=== PATIENT | female | born 1955 | race Caucasian/White ===

== ENCOUNTER → 2016-03-17 | Outpatient (REF) | payer OTHER ==
[2016-03-17 12:00] LABS: ALBUMIN 3.7 GM/DL (3.2-5.2); ALBUMIN/GLOBULIN RATIO 1.19 (1.00-1.93); ALKALINE PHOSPHATASE 106 U/L (45-117); ALT/SGPT 24 U/L (12-78); ANION GAP 8 MEQ/L (8-16); AST/SGOT 11 U/L (15-37); BILIRUBIN,TOTAL 0.4 MG/DL (0.2-1.0); BLOOD UREA NITROGEN 20 MG/DL (7-18); CALCIUM LEVEL 9.4 MG/DL (8.8-10.2); CARBON DIOXIDE LEVEL 31 MEQ/L (21-32); CHLORIDE LEVEL 102 MEQ/L (98-107); CREATININE FOR GFR 0.82 MG/DL (0.55-1.02); FREE T4 1.12 NG/DL (0.76-1.46); GLOMERULAR FILTRATION RATE > 60.0 (>45); GLUCOSE, FASTING 85 MG/DL (80-110); POTASSIUM SERUM 4.2 MEQ/L (3.5-5.1); SODIUM LEVEL 141 MEQ/L (136-145); TOTAL PROTEIN 6.8 GM/DL (6.4-8.2)
== END ==
LOC: M SFHCPLAZ 08:13
PROVIDERS: ATTEND Nurse Practitioner Family
DX: R60.0 Localized edema (principal); E03.9 Hypothyroidism, unspecified; K21.9 Gastro-esophageal reflux disease without esophagitis; E55.9 Vitamin D deficiency, unspecified

== ENCOUNTER → 2016-07-12 | Outpatient (CLI) | payer OTHER ==
--- NOTE | 2016-07-12 11:08 | REP ---
LUMBAR SPINE, FIVE VIEWS: HISTORY: Back pain. There is no acute fracture or subluxation. The L3-4 and L4-5 intervertebral discs are decreased in height consistent with disc degeneration. The facet joints are normal in appearance. IMPRESSION: Degenerative change as described above. Signed by Ramon Bassett MD 07/12/2016 11:47 A
--- NOTE | 2016-07-12 22:53 | REP ---
Clinical: Acute right knee pain. Technique: AP, lateral, bilateral oblique, and sunrise views of the right knee. Findings: Mild arthritic changes include subchondral sclerosis to the tibial plateau and posterior patella with associated tibiofemoral and patellofemoral joint space narrowing. No acute fracture dislocation. No effusion. Impression: Mild arthritic degenerative changes. Signed by Bay Valero MD 07/12/2016 10:44 P
== END ==
LOC: M SMT 08:32
PROVIDERS: ATTEND Nurse Practitioner Family
DX: M54.41 Lumbago with sciatica, right side (principal); M25.561 Pain in right knee

== ENCOUNTER → 2016-09-15 | Outpatient (REF) | payer OTHER ==
[2016-09-15 13:21] LABS: ALBUMIN 3.9 GM/DL (3.2-5.2); ALBUMIN/GLOBULIN RATIO 1.39 (1.00-1.93); ALKALINE PHOSPHATASE 97 U/L (45-117); ALT/SGPT 23 U/L (12-78); ANION GAP 10 MEQ/L (8-16); AST/SGOT 12 U/L (15-37); BILIRUBIN,TOTAL 0.4 MG/DL (0.2-1.0); BLOOD UREA NITROGEN 17 MG/DL (7-18); CALCIUM LEVEL 9.5 MG/DL (8.8-10.2); CARBON DIOXIDE LEVEL 30 MEQ/L (21-32); CHLORIDE LEVEL 102 MEQ/L (98-107); CHOLESTEROL LEVEL 226 MG/DL (<200); CREATININE FOR GFR 0.62 MG/DL (0.55-1.02); FREE T4 1.23 NG/DL (0.76-1.46); GLOMERULAR FILTRATION RATE > 60.0 (>45); GLUCOSE, FASTING 80 MG/DL (80-110); POTASSIUM SERUM 3.9 MEQ/L (3.5-5.1); SODIUM LEVEL 142 MEQ/L (136-145); TOTAL PROTEIN 6.7 GM/DL (6.4-8.2); TRIGLYCERIDES LEVEL 221 MG/DL (<150)
== END ==
LOC: M SFHCPLAZ 10:36
PROVIDERS: ATTEND Nurse Practitioner Family
DX: R60.0 Localized edema (principal); E03.9 Hypothyroidism, unspecified; E78.2 Mixed hyperlipidemia; E55.9 Vitamin D deficiency, unspecified

== ENCOUNTER → 2016-11-08 | Outpatient (CLI) | payer OTHER ==
[2016-11-08 18:26] LABS: INR 0.84
== END ==
LOC: M WUC 15:30
PROVIDERS: ATTEND Physical Medicine & Rehabilitation
DX: M51.27 Other intervertebral disc displacement, lumbosacral region (principal); M47.817 Spondylosis without myelopathy or radiculopathy, lumbosacral region

== ENCOUNTER → 2017-03-14 | Outpatient (REF) | payer OTHER ==
[2017-03-14 12:21] LABS: TOTAL 25(OH) VITAMIN D 22.4 NG/ML (30.0-100.0)
[2017-03-14 12:36] LABS: ALBUMIN 3.8 GM/DL (3.2-5.2); ALBUMIN/GLOBULIN RATIO 1.12 (1.00-1.93); ALKALINE PHOSPHATASE 107 U/L (45-117); ALT/SGPT 25 U/L (12-78); ANION GAP 5 MEQ/L (8-16); AST/SGOT 11 U/L (7-37); BILIRUBIN,TOTAL 0.4 MG/DL (0.2-1.0); BLOOD UREA NITROGEN 17 MG/DL (7-18); CALCIUM LEVEL 9.2 MG/DL (8.8-10.2); CARBON DIOXIDE LEVEL 32 MEQ/L (21-32); CHLORIDE LEVEL 104 MEQ/L (98-107); CREATININE FOR GFR 0.85 MG/DL (0.55-1.30); FREE T4 1.07 NG/DL (0.76-1.46); GLOMERULAR FILTRATION RATE > 60.0 (>45); GLUCOSE, FASTING 98 MG/DL (70-100); POTASSIUM SERUM 4.2 MEQ/L (3.5-5.1); SODIUM LEVEL 141 MEQ/L (136-145); TOTAL PROTEIN 7.2 GM/DL (6.4-8.2)
== END ==
LOC: M SFHCPLAZ 07:50
DX: R60.0 Localized edema (principal); E03.9 Hypothyroidism, unspecified; K21.9 Gastro-esophageal reflux disease without esophagitis; E55.9 Vitamin D deficiency, unspecified

== ENCOUNTER → 2017-07-13 | Outpatient (CLI) | payer OTHER | LOC: M RAD 07:34 | DX: J44.9 Chronic obstructive pulmonary disease, unspecified (principal); F17.210 Nicotine dependence, cigarettes, uncomplicated; Z12.2 Encounter for screening for malignant neoplasm of respiratory organs ==

== ENCOUNTER → 2017-09-12 | Outpatient (REF) | payer OTHER ==
[2017-09-12 11:59] LABS: TOTAL 25(OH) VITAMIN D 13.8 NG/ML (30.0-100.0)
[2017-09-12 12:02] LABS: ALBUMIN 3.7 GM/DL (3.2-5.2); ALBUMIN/GLOBULIN RATIO 1.16 (1.00-1.93); ALKALINE PHOSPHATASE 104 U/L (45-117); ALT/SGPT 23 U/L (12-78); ANION GAP 8 MEQ/L (8-16); AST/SGOT 8 U/L (7-37); BILIRUBIN,TOTAL 0.4 MG/DL (0.2-1.0); BLOOD UREA NITROGEN 18 MG/DL (7-18); CALCIUM LEVEL 9.6 MG/DL (8.8-10.2); CARBON DIOXIDE LEVEL 30 MEQ/L (21-32); CHLORIDE LEVEL 104 MEQ/L (98-107); CHOLESTEROL LEVEL 222 MG/DL (<200); CREATININE FOR GFR 0.83 MG/DL (0.55-1.30); FREE T4 1.14 NG/DL (0.76-1.46); GLOMERULAR FILTRATION RATE > 60.0 (>45); GLUCOSE, FASTING 92 MG/DL (70-100); HDL CHOLESTEROL 49 MG/DL (>40); LDL CHOLESTEROL 120.2 MG/DL (<100); NON-HDL-C 173 MG/DL; POTASSIUM SERUM 4.3 MEQ/L (3.5-5.1); SODIUM LEVEL 142 MEQ/L (136-145); TOTAL PROTEIN 6.9 GM/DL (6.4-8.2); TRIGLYCERIDES LEVEL 264 MG/DL (<150)
== END ==
LOC: M SFHCPLAZ 08:53
DX: R60.0 Localized edema (principal); Z68.39 Body mass index [BMI] 39.0-39.9, adult; E03.9 Hypothyroidism, unspecified; E78.2 Mixed hyperlipidemia; E55.9 Vitamin D deficiency, unspecified

== ENCOUNTER → 2017-12-12 | Outpatient (REF) | payer OTHER ==
[2017-12-12 18:36] LABS: BASO % 0.3 % (0.0-1.0); EOS # 0.1 10^3/uL (0.0-0.50); EOS % 1.2 % (0.0-3.0); HEMOGLOBIN 14.4 g/dl (12.0-15.5); IMMATURE GRANULOCYTE % 1.3 % (0-3.0); LYMPH # 1.5 10^3/uL (1.5-4.5); MEAN CORPUSCULAR HEMOGLOBIN 31.1 pg (27.0-33.0); MEAN CORPUSCULAR HGB CONC 34.3 g/dl (32.0-36.5); MEAN CORPUSCULAR VOLUME 90.7 fl (80.0-96.0); MONO % 8.3 % (0.0-5.0); NEUTROPHILS # 8.9 10^3/uL (1.8-7.7); NEUTROPHILS % 75.9 % (36.0-66.0); PLATELET COUNT, AUTOMATED 255 10^3/uL (150-450); RED BLOOD COUNT 4.63 10^6/uL (4.00-5.40); RED CELL DISTRIBUTION WIDTH 15.3 % (11.5-14.5); WHITE BLOOD COUNT 11.8 10^3/uL (4.0-10.0)
[2017-12-12 18:57] LABS: ALBUMIN 3.8 GM/DL (3.2-5.2); ALBUMIN/GLOBULIN RATIO 1.09 (1.00-1.93); ALKALINE PHOSPHATASE 112 U/L (45-117); ALT/SGPT 18 U/L (12-78); ANION GAP 6 MEQ/L (8-16); AST/SGOT 6 U/L (7-37); BILIRUBIN,TOTAL 0.3 MG/DL (0.2-1.0); BLOOD UREA NITROGEN 14 MG/DL (7-18); CALCIUM LEVEL 9.4 MG/DL (8.8-10.2); CARBON DIOXIDE LEVEL 33 MEQ/L (21-32); CHLORIDE LEVEL 100 MEQ/L (98-107); CREATININE FOR GFR 0.74 MG/DL (0.55-1.30); GLOMERULAR FILTRATION RATE > 60.0 (>45); GLUCOSE, FASTING 90 MG/DL (70-100); LIPASE 73 U/L (73-393); POTASSIUM SERUM 3.8 MEQ/L (3.5-5.1); SODIUM LEVEL 139 MEQ/L (136-145); TOTAL PROTEIN 7.3 GM/DL (6.4-8.2)
[2017-12-12 19:02] LABS: APPEARANCE, URINE HAZY (CLEAR); BACTERIA, URINE AUTO NEGATIVE (NEGATIVE); BILIRUBIN, URINE AUTO NEGATIVE (NEGATIVE); BLOOD, URINE BLOOD NEGATIVE (NEGATIVE); CALCIUM OXALATE CRYSTALS LARGE; COLOR, URINE YELLOW (YELLOW); GLUCOSE, URINE (UA) AUTO NEGATIVE (NEGATIVE); KETONE, URINE AUTO NEGATIVE (NEGATIVE); LEUKOCYTE ESTERASE, URINE AUTO NEGATIVE (NEGATIVE); MUCUS, URINE SMALL (NEGATIVE); NITRITE, URINE AUTO NEGATIVE (NEGATIVE); PROTEIN, URINE AUTO NEGATIVE (NEGATIVE); RBC, URINE AUTO 1 /HPF (0-3); SPECIFIC GRAVITY URINE AUTO 1.023 (1.002-1.035); SQUAMOUS EPITHELIAL CELL UR AU 4 /HPF (0-6); UROBILINOGEN, URINE AUTO 0.2 mg/dL (0.0-2.0); WBC, URINE AUTO 2 /HPF (0-3)
== END ==
LOC: M SFHCPLAZ 15:54
DX: R10.32 Left lower quadrant pain (principal)

== ENCOUNTER → 2017-12-13 | Outpatient (CLI) | payer OTHER ==
[~2017-12-13] MED LIST: GASTROGRAFIN SOLUTION 30ML (Q9963) As Ordered; ISOVUE-370 76% 100ML VIAL (Q9967) As Ordered
== END ==
LOC: M RAD 07:14
DX: R10.32 Left lower quadrant pain (principal)
CPT/HCPCS: Q9963

== ENCOUNTER → 2018-01-02 | Outpatient (REF) | payer OTHER ==
[2018-01-02 11:44] LABS: BASO % 0.3 % (0.0-1.0); EOS # 0.1 10^3/uL (0.0-0.50); EOS % 1.7 % (0.0-3.0); HEMATOCRIT 43.6 % (36.0-47.0); HEMOGLOBIN 14.4 g/dl (12.0-15.5); IMMATURE GRANULOCYTE % 0.3 % (0-3.0); LYMPH # 1.2 10^3/uL (1.5-4.5); LYMPH % 19.6 % (24.0-44.0); MEAN CORPUSCULAR HEMOGLOBIN 30.5 pg (27.0-33.0); MEAN CORPUSCULAR VOLUME 92.4 fl (80.0-96.0); MONO # 0.5 10^3/uL (0.0-0.8); NEUTROPHILS # 4.2 10^3/uL (1.8-7.7); NEUTROPHILS % 70.1 % (36.0-66.0); PLATELET COUNT, AUTOMATED 218 10^3/uL (150-450); RED BLOOD COUNT 4.72 10^6/uL (4.00-5.40); RED CELL DISTRIBUTION WIDTH 15.4 % (11.5-14.5)
[2018-01-02 11:55] LABS: ALBUMIN 3.8 GM/DL (3.2-5.2); ALBUMIN/GLOBULIN RATIO 1.19 (1.00-1.93); ALKALINE PHOSPHATASE 96 U/L (45-117); ALT/SGPT 18 U/L (12-78); ANION GAP 6 MEQ/L (8-16); AST/SGOT 9 U/L (7-37); BILIRUBIN,TOTAL 0.4 MG/DL (0.2-1.0); BLOOD UREA NITROGEN 15 MG/DL (7-18); CALCIUM LEVEL 9.2 MG/DL (8.8-10.2); CARBON DIOXIDE LEVEL 31 MEQ/L (21-32); CHLORIDE LEVEL 104 MEQ/L (98-107); CREATININE FOR GFR 0.83 MG/DL (0.55-1.30); GLOMERULAR FILTRATION RATE > 60.0 (>45); GLUCOSE, FASTING 82 MG/DL (70-100); SODIUM LEVEL 141 MEQ/L (136-145)
== END ==
LOC: M SFHCPLAZ 09:45
DX: R16.1 Splenomegaly, not elsewhere classified (principal)
CPT/HCPCS: 80053

== ENCOUNTER → 2018-01-07 | Outpatient (CLI) | payer OTHER | LOC: M WHC 08:19 | DX: R10.11 Right upper quadrant pain (principal); K80.20 Calculus of gallbladder without cholecystitis without obstruction | CPT/HCPCS: 76705 ==

== ENCOUNTER → 2018-01-08 | Outpatient (CLI) | payer OTHER | LOC: M RAD 12:47 | DX: J98.4 Other disorders of lung (principal) | CPT/HCPCS: 71250 ==

== ENCOUNTER → 2018-01-08 | Outpatient (CLI) | payer OTHER | LOC: M WHC 13:55 | DX: Z12.31 Encounter for screening mammogram for malignant neoplasm of breast (principal) | CPT/HCPCS: 77067 ==

== ENCOUNTER → 2018-01-08 | Outpatient (REF) | payer OTHER ==
[2018-01-11 08:08] LABS: HPV HYBRID CAPTURE II Negative (Negative)
== END ==
LOC: M SFHCWAGY 14:20
DX: Z12.4 Encounter for screening for malignant neoplasm of cervix (principal)
CPT/HCPCS: G0123

== ENCOUNTER 2018-02-20 11:53 | Inpatient (IN) | payer OTHER ==
[~2018-02-20] VITALS: Ht 154.9 cm; Wt 92.2 kg
[~2018-02-20 11:53] MED LIST changes: +AMPICILLIN SOD/SULBACTAM SOD 3 GM in D5W MINI-BAG PLUS 100 ML IV ONE; +ANOR1AER PO; +DRIS50003 PO; -GASTROGRAFIN SOLUTION 30ML (Q9963) As Ordered; +HYDR25TAB PO; -ISOVUE-370 76% 100ML VIAL (Q9967) As Ordered; +LIDOCAINE 1% MDV 20ML VIAL SQ PRN; +LR 1,000 ML IV ONE; +NICO7DIS24 TOP; +PRIL20TA2 PO; +PROAAER10 INH; +QVAR80AE8 INH; +SYNT88TA2 PO; +ZOLO100T PO
[2018-02-20] MEDS ORDERED: ROCURONIUM BROMIDE 50 MG/5 ML VIAL As Ordered ONE (12:52)
[2018-02-20] MEDS ORDERED: dexameTHASONE 4 MG/ML 1ML VIAL (J1100) As Ordered ONE ×2 (12:52→15:52)
[2018-02-20] MEDS ORDERED: fentaNYL 250 MCG/5 ML INJECTION (J3010) As Ordered ONE (12:52)
[2018-02-20] MEDS ORDERED: PROPOFOL 200 MG/20 ML VIAL As Ordered ONE (12:52)
[2018-02-20] MEDS ORDERED: ONDANSETRON 4MG/2ML VIAL (J2405) As Ordered ONE (12:52)
[2018-02-20] MEDS ORDERED: LIDOCAINE 2% INJ 100 MG/5 ML SDV (FOR ANES.) As Ordered ONE (12:52)
[2018-02-20] MEDS ORDERED: MIDAZOLAM INJ 2 MG/2 ML VIAL (J2250) As Ordered ONE (12:53)
[2018-02-20] MEDS ORDERED: KETOROLAC 60 MG/2 ML VIAL (J1885) As Ordered ONE (12:55)
[2018-02-20] MEDS ORDERED: LIDOCAINE 1% SDV INJ 30 ML VIAL As Ordered ONE (14:17)
[2018-02-20] MEDS ORDERED: BUPIVACAINE HCL 0.25% 30 ML VIAL As Ordered ONE (14:17)
[2018-02-20] MEDS ORDERED: NEOSTIGMINE 10 MG/10 ML VIAL (J2710) As Ordered ONE (14:37)
[2018-02-20] MEDS ORDERED: GLYCOPYRROLATE INJ 0.2 MG/ML 2 ML VIAL As Ordered ONE (14:37)
[2018-02-20] MEDS ORDERED: ESMOLOL INJ 100MG/10ML VIAL As Ordered ONE (15:47)
[2018-02-20] MEDS ORDERED: LEVALBUTEROL 1.25 MG/0.5 ML CONCENTRATE NEB As Ordered ONE (16:15)
[2018-02-20] MEDS ORDERED: fentaNYL 100 MCG/2 ML INJECTION (J3010) As Ordered ONE (16:20)
[2018-02-20] MEDS: fentaNYL 100 MCG/2 ML INJECTION (J3010) IV PRN ×2 (16:23→16:30)
[2018-02-20] MEDS ORDERED: LEVALBUTEROL 1.25 MG/0.5 ML CONCENTRATE NEB INH ONE (16:30)
[2018-02-20] MEDS ORDERED: PERCOCET 5MG/325MG TAB PO PRN ×3 (16:30→17:45)
[2018-02-20] MEDS ORDERED: KETOROLAC 30 MG/ML VIAL (J1885) IV PRN ×2 (16:30→17:45)
[2018-02-20] MEDS ORDERED: METOCLOPRAMIDE INJ 10MG/2ML VIAL (J2765) IV PRN (16:30)
[2018-02-20] MEDS ORDERED: LR 1,000 ML IV SCH ×2 (16:30→17:38)
[2018-02-20] MEDS ORDERED: MEPERIDINE INJ 25 MG/ML VIAL (J2175) IV PRN (16:30)
[2018-02-20] MEDS ORDERED: ONDANSETRON 4MG/2ML VIAL (J2405) IV PRN ×3 (16:30→17:45)
--- NOTE | 2018-02-20 17:38 | ROOPDOC ---
[facility] Report Of Operation Report of Operation DATE OF PROCEDURE: 02/20/18 PREPROCEDURE DIAGNOSES: Cholelithiasis, Biliary Colic. Splenomegaly POSTPROCEDURE DIAGNOSES: Cholelithiasis, Chronic Cholecystitis, Splenomegaly PROCEDURE: Laparoscopic Cholecystectomy, Core Biopsy of lower pole of spleen. SURGEON: Sky Ayala MD ENTERPRISE ACCOUNT EXECUTIVE: Ankush Muhammad MD ANESTHESIA: General Anesthesia. ESTIMATED BLOOD LOSS: Approximately 40 mL. COMPLICATIONS: none. REMARKS: 62 F with intermittent epigastric and right upper quadrant discomfort related to presence of gallstones. She also had an incidental finding of splenomegaly and is being seen by Dr. Lizarraga. Dr. Lizarraga asked for possible biopsy of the spleen for workup of her splenomegaly. PROCEDURE NOTE: Patient took awhile to wake but successfully extubated but with her COPD, had some air trapping, mild episodes of hypoxia (88) with restricted breathign secondary to pain; thus she was admitted for further observation DESCRIPTION OF PROCEDURE: SKY AYALA MD Feb 20, 2018 17:38
[2018-02-20] MEDS ORDERED: MORPHINE 4 MG/ML 1ML VIAL/SYRINGE (J2270) IV PRN (17:45)
[2018-02-20 18:10] VITALS: BP 122/60
[2018-02-20 20:00] VITALS: BP 149/77
[2018-02-20] MEDS: NORCO, ANEXSIA 5/325MG TABLET (HYDROcodone/ACETAMINOPHEN) PO PRN (23:11)
[2018-02-21] VITALS: BP 135/76
[2018-02-21 03:58] VITALS: BP 123/70
[2018-02-21] MEDS: LEVOTHYROXINE 88MCG TABLET (0.088 MG) PO SCH (05:06)
[2018-02-21] MEDS: ACETAMINOPHEN TAB 650MG DOSE (2X325MG) PO PRN ×2 (05:11→11:47)
[2018-02-21 06:21] LABS: BASO % 0.1 % (0.0-1.0); HEMATOCRIT 38.7 % (36.0-47.0); LYMPH # 0.5 10^3/uL (1.5-4.5); LYMPH % 2.6 % (24.0-44.0); MEAN CORPUSCULAR HEMOGLOBIN 30.6 pg (27.0-33.0); MEAN CORPUSCULAR HGB CONC 33.6 g/dl (32.0-36.5); MEAN CORPUSCULAR VOLUME 91.1 fl (80.0-96.0); MONO # 0.9 10^3/uL (0.0-0.8); MONO % 5.2 % (0.0-5.0); NEUTROPHILS # 16.7 10^3/uL (1.8-7.7); NEUTROPHILS % 91.7 % (36.0-66.0); PLATELET COUNT, AUTOMATED 194 10^3/uL (150-450); RED BLOOD COUNT 4.25 10^6/uL (4.00-5.40); WHITE BLOOD COUNT 18.2 10^3/uL (4.0-10.0)
[2018-02-21 06:46] LABS: ALBUMIN 3.2 GM/DL (3.2-5.2); ALT/SGPT 146 U/L (12-78); BILIRUBIN,TOTAL 0.6 MG/DL (0.2-1.0); BLOOD UREA NITROGEN 18 MG/DL (7-18); CARBON DIOXIDE LEVEL 27 MEQ/L (21-32); CHLORIDE LEVEL 104 MEQ/L (98-107); GLOMERULAR FILTRATION RATE > 60.0 (>45); GLUCOSE, FASTING 119 MG/DL (70-100); POTASSIUM SERUM 4.2 MEQ/L (3.5-5.1); SODIUM LEVEL 137 MEQ/L (136-145); TOTAL PROTEIN 6.4 GM/DL (6.4-8.2)
[2018-02-21 08:00] VITALS: BP 128/61
--- NOTE | 2018-02-21 08:32 | IPNPDOC ---
Subjective General Date/Time Seen The patient was seen on 02/21/18 at 08:31. Subject Chief Complaint/History Patient appears more comfortable. She is complaining of pain over the left upper quadrant, left side of the chest and shoulder. She denies any nausea or vomiting. She feels bloated. She is still on the Venturi mask 94%. Current Medications Current Medications Current Medications Acetaminophen (Tylenol Tab) 650 mg Q4HP PRN PO MILD PAIN or TEMP > 101 Last administered on 02/21/18at 05:11; Start 02/20/18 at 17:45 Acetaminophen/ Hydrocodone Bitart ([place], Anexsia 5/325) 1 tab Q4HP PRN PO PAIN; Start 02/20/18 at 16:30 Acetaminophen/ Hydrocodone Bitart ([place], Anexsia 5/325) 2 tab Q4HP PRN PO SEVERE PAIN (PS 8-10) Last administered on 02/20/18at 23:11; Start 02/20/18 at 16:30 Albuterol Sulfate (Proventil, Ventolin Hfa) 2 puff Q2HP PRN INH wheezing; sob; Start 02/20/18 at 17:45 Fentanyl Citrate (Sublimaze) 25 mcg Q5MP PRN IV MODERATE PAIN (PS 4-7) Last administered on 02/20/18at 16:30; Start 02/20/18 at 16:30; Stop 02/20/18 at 17:30; Status DC Hydrochlorothiazide (Hydrodiuril) 25 mg DAILY PO ; Start 02/21/18 at 09:00 Ketorolac Tromethamine (ToRADol) 15 mg Q6H PRN IV PAIN; Start 02/20/18 at 16:30; Stop 02/20/18 at 17:50; Status DC Ketorolac Tromethamine (ToRADol) 15 mg Q6HP PRN IV MILD/MODERATE PAIN (PS 1-7) Last administered on 02/20/18at 17:45; Start 02/20/18 at 17:45; Stop 02/25/18 at 17:44 Lactated Ringer's 1,000 ml @ 100 mls/hr Q10H IV ; Start 02/20/18 at 16:30; Stop 02/20/18 at 17:30; Status DC Lactated Ringer's 1,000 ml @ 100 mls/hr Q10H IV ; Start 02/20/18 at 17:38; Stop 02/20/18 at 23:23; Status DC Levothyroxine Sodium (Synthroid) 88 mcg DAILY@0600 PO Last administered on 02/21/18at 05:06; Start 02/21/18 at 06:00 Lidocaine HCl (LIDOCAINE 1% MDV 20ml) 0.1 ml ONCE PRN SQ DISCOMFORT BEFORE IV START; Start 02/20/18 at 06:00; Stop 02/20/18 at 16:16; Status DC Meperidine HCl (Demerol) 12.5 mg Q5MP PRN IV SHIVERING; Start 02/20/18 at 16:30; Stop 02/20/18 at 17:30; Status DC Metoclopramide HCl (REGLAN INJection) 10 mg Q6HP PRN IV NAUSEA OR VOMITING; Start 02/20/18 at 16:30; Stop 02/20/18 at 17:30; Status DC Morphine Sulfate (Morphine Sulfate Inj) 4 mg Q2HP PRN IV SEVERE PAIN (PS 8-10); Start 02/20/18 at 17:45 Nicotine (Nicoderm Cq 7 Mg) 1 patch DAILY TOP ; Start 02/21/18 at 09:00 Omeprazole (PriLOSEC) 20 mg DAILY PO ; Start 02/21/18 at 09:00 Ondansetron HCl (ZOFRAN INJection) 4 mg Q4HP PRN IV NAUSEA OR VOMITING; Start 02/20/18 at 16:30; Stop 02/20/18 at 17:30; Status DC Ondansetron HCl (ZOFRAN INJection) 4 mg Q6HP PRN IV NAUSEA; Start 02/20/18 at 16:30; Stop 02/20/18 at 17:50; Status DC Ondansetron HCl (ZOFRAN INJection) 4 mg Q6HP PRN IV NAUSEA OR VOMITING; Start 02/20/18 at 17:45 Oxycodone/ Acetaminophen (Percocet 5mg/ 325mg Tablet) 1 tab ASDIRECTED PRN PO MILD/MODERATE PAIN (PS 1-7) Last administered on 02/20/18at 16:55; Start 02/20/18 at 16:30; Stop 02/20/18 at 17:30; Status DC Oxycodone/ Acetaminophen (Percocet 5mg/ 325mg Tablet) 1 tab Q4HP PRN PO MODERATE PAIN (PS 5-7); Start 02/20/18 at 17:45 Oxycodone/ Acetaminophen (Percocet 5mg/ 325mg Tablet) 2 tab Q6HP PRN PO SEVERE PAIN (PS 8-10); Start 02/20/18 at 17:45 Sertraline HCl (Zoloft) 100 mg DAILY PO ; Start 02/21/18 at 09:00 Allergies Coded Allergies: Iodine (Verified Allergy, Intermediate, itching and rash, 01/30/18) No Known Drug Allergy (Unverified Allergy, Unknown, 05/15/12) Objective Physical Examination Examination GENERAL APPEARANCE: Comfortable. SKIN: Warm and moist. HEENT: Normocephalic, atraumatic. [place] palpebral conjunctiva, anicteric sclerae. Lips and mucosa appear moist. NECK: Supple, no thyromegaly. No obvious jugular venous distention. LUNGS: Clear to auscultation bilaterally. No wheezing appreciated. Slight decreased respiratory effort, splinting HEART: No chest wall abnormalities. Regular rate and rhythm with no murmurs appreciated. ABDOMEN: Abdomen is obese, soft, nondistended. Port site incisions are clean, dry and intact. Minimally tender close to the left upper quadrant incision site. EXTREMITIES: Extremities have no deformities. No edema identified. Vital Signs Vital Signs Date Time Temp Pulse Resp B/P (MAP) Pulse Ox O2 Delivery O2 Flow Rate FiO2 02/21/18 04:00 35 02/21/18 03:58 98.9 104 20 123/70 (87) 94 Venturi Mask 02/20/18 18:30 12.0 I&Os I&O- Last 24 Hours up to 6 AM 02/21/18 05:59 Intake Total 2430 ml Output Total 290 ml Balance 2140 ml Laboratory Data Labs 24H Laboratory Tests 2 02/21/18 05:50: Immature Granulocyte % (Auto) 0.4, White Blood Count 18.2H, Red Blood Count 4.25, Hemoglobin 13.0, Hematocrit 38.7, Mean Corpuscular Volume 91.1, Mean Corpuscular Hemoglobin 30.6, Mean Corpuscular Hemoglobin Concent 33.6, Red Cell Distribution Width 15.5H, Platelet Count 194, Neutrophils (%) (Auto) 91.7H, Lymphocytes (%) (Auto) 2.6L, Monocytes (%) (Auto) 5.2H, Eosinophils (%) (Auto) 0.0, Basophils (%) (Auto) 0.1, Neutrophils # (Auto) 16.7H, Lymphocytes # (Auto) 0.5L, Monocytes # (Auto) 0.9H, Eosinophils # (Auto) 0.0, Basophils # (Auto) 0.0, Nucleated Red Blood Cells % (auto) 0.0, Anion Gap 6L, Glomerular Filtration Rate > 60.0, Blood Urea Nitrogen 18, Creatinine 0.80, Sodium Level 137, Potassium Level 4.2, Chloride Level 104, Carbon Dioxide Level 27, Calcium Level 9.0, Aspartate Amino Transf (AST/SGOT) 106H, Alanine Aminotransferase (ALT/SGPT) 146H, Alkaline Phosphatase 108, Total Bilirubin 0.6, Total Protein 6.4, Albumin 3.2, Albumin/Globulin Ratio 1.00 CBC/BMP Laboratory Tests 02/21/18 05:50 Red Blood Count 4.25, Mean Corpuscular Volume 91.1, Mean Corpuscular Hemoglobin 30.6, Mean Corpuscular Hemoglobin Concent 33.6, Red Cell Distribution Width 15.5 H, Neutrophils (%) (Auto) 91.7 H, Lymphocytes (%) (Auto) 2.6 L, Monocytes (%) (Auto) 5.2 H, Eosinophils (%) (Auto) 0.0, Basophils (%) (Auto) 0.1, Neutrophils # (Auto) 16.7 H, Lymphocytes # (Auto) 0.5 L, Monocytes # (Auto) 0.9 H, Eosinophils # (Auto) 0.0, Basophils # (Auto) 0.0, Calcium Level 9.0, Aspartate Amino Transf (AST/SGOT) 106 H, Alanine Aminotransferase (ALT/SGPT) 146 H, Alkaline Phosphatase 108, Total Bilirubin 0.6, Total Protein 6.4, Albumin 3.2 Impression Postop day 1 laparoscopic cholecystectomy for cholelithiasis, biliary colic attacks, core needle biopsy of spleen for splenomegaly unexplained Postoperative hypoxia COPD Patient more comfortable today though she still is on high amounts of oxygen on a Venturi mask. I'll get a chest x-ray. We will try to wean off the oxygen Labs reviewed. Leukocytosis probably from atelectasis, reactive no signs of systemic inflammatory response symptoms Incentives spirometer Plan / VTE VTE Prophylaxis Ordered?: Yes ASCENCION HINES MD Feb 21, 2018 08:32
[2018-02-21] MEDS: NICOTINE 7 MG/24 HR TRANSDERMAL TOP SCH (09:00)
--- NOTE | 2018-02-21 09:47 | REP ---
Chest x-ray: Two views. History: Shortness of breath. Comparison study: November 26, 2015. Findings: EKG monitoring electrodes overlie the chest. The lungs are symmetrically aerated and free of infiltrate. There is a faint linear band of increased density in the perihilar region on the left consistent with discoid atelectasis. Pleural angles are sharp. Heart size is normal. Pulmonary vasculature is not increased. Impression: Mild perihilar discoid atelectasis on the left. Otherwise no acute disease. Electronically Signed by Adilson Dyer MD 02/21/2018 09:38 A
[2018-02-21] MEDS: OMEPRAZOLE 20 MG CAP PO SCH (10:07)
[2018-02-21] MEDS: SERTRALINE 100 MG TAB PO SCH (10:07)
[2018-02-21] MEDS: hydroCHLOROthiazide 25 MG TAB PO SCH (10:07)
[2018-02-21 12:00] VITALS: BP 122/68
[2018-02-21] MEDS ORDERED: SLF 3 ML SYR IV PRN (12:30)
[2018-02-21] MEDS: SLF 3 ML SYR IV SCH ×2 (14:59→22:00)
[2018-02-21] MEDS: NORCO, ANEXSIA 5/325MG TABLET (HYDROcodone/ACETAMINOPHEN) PO PRN ×2 (14:59→19:32)
[2018-02-21 16:00] VITALS: BP 153/83
[2018-02-21 19:28] VITALS: BP 141/71
[2018-02-21] MEDS: ALBUTEROL 90 MCG/ACT 8GM HFA INHALER INH PRN (19:50)
[2018-02-21] MEDS ORDERED: IPRATROPIUM 0.5MG/ALBUTEROL 2.5MG INH SOL UD 3ML (DUONEB)(J7620) NEB PRN (20:45)
[2018-02-22] VITALS: BP 150/70
[2018-02-22] MEDS: NORCO, ANEXSIA 5/325MG TABLET (HYDROcodone/ACETAMINOPHEN) PO PRN ×5 (00:14→21:21)
[2018-02-22] MEDS: ALBUTEROL 90 MCG/ACT 8GM HFA INHALER INH PRN ×2 (00:16→03:03)
[2018-02-22 04:00] VITALS: BP 140/78
[2018-02-22] MEDS: LEVOTHYROXINE 88MCG TABLET (0.088 MG) PO SCH (04:10)
[2018-02-22] MEDS: SLF 3 ML SYR IV SCH ×3 (04:11→21:03)
[2018-02-22 08:02] VITALS: BP 135/80
[2018-02-22] MEDS: OMEPRAZOLE 20 MG CAP PO SCH (08:12)
[2018-02-22] MEDS: SERTRALINE 100 MG TAB PO SCH (08:12)
[2018-02-22] MEDS: hydroCHLOROthiazide 25 MG TAB PO SCH (08:13)
[2018-02-22 09:40] LABS: HEMATOCRIT 37.9 % (36.0-47.0); HEMOGLOBIN 12.9 g/dl (12.0-15.5); MEAN CORPUSCULAR HEMOGLOBIN 31.5 pg (27.0-33.0); MEAN CORPUSCULAR VOLUME 92.7 fl (80.0-96.0); PLATELET COUNT, AUTOMATED 181 10^3/uL (150-450); RED BLOOD COUNT 4.09 10^6/uL (4.00-5.40); WHITE BLOOD COUNT 14.6 10^3/uL (4.0-10.0)
[2018-02-22] MEDS ORDERED: FUROSEMIDE 40 MG/4 ML VIAL (J1940) IV ONE (10:00)
[2018-02-22 10:11] LABS: ALBUMIN 3.1 GM/DL (3.2-5.2); ALT/SGPT 301 U/L (12-78); BILIRUBIN,TOTAL 2.7 MG/DL (0.2-1.0); BLOOD UREA NITROGEN 12 MG/DL (7-18); CALCIUM LEVEL 9.2 MG/DL (8.8-10.2); CARBON DIOXIDE LEVEL 30 MEQ/L (21-32); CHLORIDE LEVEL 96 MEQ/L (98-107); CREATININE FOR GFR 0.74 MG/DL (0.55-1.30); GLOMERULAR FILTRATION RATE > 60.0 (>45); GLUCOSE, FASTING 127 MG/DL (70-100); POTASSIUM SERUM 3.4 MEQ/L (3.5-5.1); SODIUM LEVEL 135 MEQ/L (136-145); TOTAL PROTEIN 7.2 GM/DL (6.4-8.2)
[2018-02-22] MEDS ORDERED: POTASSIUM CHLORIDE 10 MEQ SR TABLET PO ONE (11:00)
[2018-02-22] MEDS ORDERED: LEVALBUTEROL 1.25 MG/0.5 ML CONCENTRATE NEB INH PRN (11:00)
[2018-02-22] MEDS ORDERED: methylPREDNISolone INJ 125 MG/2 ML VIAL (J2930) IV ONE (11:15)
[2018-02-22] MEDS: LEVALBUTEROL 1.25 MG/0.5 ML CONCENTRATE NEB INH SCH ×4 (11:41→22:45)
[2018-02-22] MEDS ORDERED: ENOXAPARIN 40 MG/0.4 ML SYRINGE (J1650) SC ONE (11:45)
[2018-02-22 12:00] VITALS: BP 154/72
--- NOTE | 2018-02-22 12:15 | IPN ---
DATE OF SERVICE: 02/22/2018 PRIMARY CARE PHYSICIAN: Ev Gaytan, Faizan Vaughan MD SUBJECTIVE: Patient is a 63-year-old female past medical history significant for active smoking, chronic obstructive pulmonary disease (COPD), follows with Dr. Ramírez, splenomegaly follows with Dr. Lizarraga, status post biopsy 02/21/[address] Ayala, presented for elective laparoscopic cholecystectomy, and admitted by surgical services on 02/20/2018, hypothyroidism, hyperlipidemia, depression, dysthymic syndrome, chronic lower extremity edema, gastroesophageal reflux disease (GERD) without esophagitis, degenerative disc disease, vitamin D deficiency, osteoarthritis (OA) of multiple sites, diverticulitis with allergies to iodine. The patient developed postop fever with T-max of 101.4 on 02/22/2018 at midnight, increasing shortness of breath and tachycardia, with increase in white count to 14,000. The hospitalist service was contacted by surgery regarding the patient's shortness of breath for further evaluation. The patient has been transferred to the hospitalist service for further management with general surgery, Dr. Ayala as a talent development consultant. At the bedside, the patient still complains of significant wheezing, shortness of breath, palpitations. No lightheadedness, chest pain, pressure or tightness. Denies dizziness or lightheadedness. Denies any lower extremity tenderness, redness. Denies any chills. Denies any productive cough, dysuria, urgency or frequency. The patient is refusing nicotine patch as this has not work for her in the past . VITAL SIGNS: Temperature 96, T-max 101.4 at midnight on 02/22/2018. Pulse of 104 to 114, sinus tachycardic, respiratory rate of 22, blood pressure 135/80, pulse oximetry 92% on 2 liters nasal cannula. Generally, patient is in mild respiratory distress. No use of respiratory accessory muscles. Speech if fluent. No conversational dyspnea. Face is symmetric. No cyanosis. Moist mucous membranes. No jugular venous distention (JVD). Thick neck. Lungs diminished bilateral audible wheezing, decreased air entry. Increased AP diameter with prolonged expiration. Heart S1, S2. Sinus tachycardia. Abdomen is obese, status post lap cholecystectomy with multiple clean incisions. No drainage and no purulence. Nontender, nondistended. Obese abdomen. Extremities chronic lower extremity 2 + edema. LABORATORY DATA: White count 14.6, hemoglobin 12.9, hematocrit 37.9, platelet count 181, sodium 135, potassium 3.4, chloride 96, bicarb 30, BUN 12, creatinine 0.74, glucose 127, calcium 9.2, total bilirubin 2.7, AST 169, ALT 301, alkaline phosphatase 218, total protein 7.2, albumin of 3.1. Microbiology: 12/12/2017 urine culture no growth of clinical significance. IMAGING STUDIES: CT chest is pending. V/Q scan is pending. 02/21/2018 chest x-ray shows mild perihilar discoid atelectasis on the left, otherwise no acute distress. ASSESSMENT/PLAN: This is a 63-year-old female with a history of hypothyroidism, osteoarthritis (OA) multiple sites, chronic lung disease with COPD, follows with Dr. Ramírez, morbid obesity, recent incidental findings of splenomegaly, active smoker, refuses nicotine replacement therapy, vitamin D deficiency, depression, reflux disease without esophagitis, chronic lower extremity edema, hyperlipidemia, diverticulitis who presents for elective laparoscopic cholecystectomy complicated by COPD exacerbation with shortness of breath and tachycardia. The patient has been changed to the hospitalist service who will be managing her acute medical issues. 1. Acute COPD exacerbation. Patient has audible wheezing at the bedside. She will be started on IV Solu-Medrol. Since she has significant tachycardia and palpitations she will be switched from albuterol to Xopenex at every 4 hours and every 1 hours as needed. Chest respiratory panel, Methicillin-resistant Staphylococcus aureus (MRSA) screen, and sputum culture. Obtain CT of the chest without contrast due to prior history of iodine allergy to rule out early pneumonia which would be hospital acquired since it has been more than 48 hours of hospital admission. No empiric antibiotics at this time as no infectious etiology has been determined. 2. Acute respiratory distress secondary to COPD exacerbation with oxygen requirement, currently on 2 liters nasal cannula. Patient will be evaluated for pulmonary embolism in light of the tachycardia, shortness of breath and recent surgery. Due to history of iodine allergy CT chest will be obtained without contrast, but will rule out PE with V/Q scan and will scan lower extremities for DVT. 3. Status post laparoscopic cholecystectomy. General surgery will remain on consult for postop management. As needed [place] for pain. Monitor for respiratory acidosis and worsening respiratory distress. 4. Hypertension on hydrochlorothiazide. 5. Hypothyroidism no Synthroid. Check TSH level. 6. Active tobacco abuse not on nicotine patch. Refused tobacco cessation counseling. 7. Reflux disease without esophagitis. On chronic Prilosec. 8. History of depression on Zoloft. 9. Morbid obesity. BMI of 38.4, complicating acute care with possible obesity hypoventilation syndrome. Will monitor for respiratory acidosis and worsening mentation.
--- NOTE | 2018-02-22 12:42 | REP ---
CT CHEST WITHOUT CONTRAST: HISTORY: Postoperative fever, shortness of breath, tachycardia. Rule out pneumonia. The patient is 1 day post laparoscopic cholecystectomy and core biopsy of the spleen. Comparison chest CT study January 08, 2018. CT FINDINGS: Digital preliminary portal developer radiograph is unremarkable. There are clips in the gallbladder fossa. Axial CT images demonstrate mild linear discoid atelectasis in the left lower lobe and in the lingula. These are new findings compared to the prior study. There is also minimal linear plate-like atelectasis adjacent to the diaphragm in the right lower lobe. No infiltrate is appreciated. There is no evidence of pneumothorax or hydrothorax. There is another tiny area of subsegmental atelectatic change in the anterior aspect of the left upper lobe adjacent to the mediastinum. No pleural or pericardial effusion is seen. No adrenal lesion is observed. There is a mottled density lateral to the anterior edge of the spleen measuring 3.2 x 1.5 x 3.1 cm. The adjacent perisplenic fat is edematous. There are air bubbles within this mottled density. There is a small quantity of fluid posterior to the spleen in the subphrenic region. There are clips in the gallbladder fossa. IMPRESSION: Small collection of air bubbles and inflamed fat adjacent to the anterior edge of the spleen with some perisplenic fluid. 1-day post splenic biopsy. Bibasilar linear plate-like atelectasis. No acute infiltrate seen. Electronically Signed by Adilson Dyer MD 02/22/2018 03:13 P
--- NOTE | 2018-02-22 12:57 | IPNPDOC ---
Subjective General Date/Time Seen The patient was seen on 02/22/18 at 12:54. Subject Chief Complaint/History Patient is postoperative day 3 after laparoscopic cholecystectomy. She remains in the hospital for persistent but improving hypoxia patient remains in 2 L of nasal cannula and patient still feels mildly short of breath with limited activity. Current Medications Current Medications Current Medications Acetaminophen (Tylenol Tab) 650 mg Q4HP PRN PO MILD PAIN or TEMP > 101 Last administered on 02/21/18at 11:47; Start 02/20/18 at 17:45 Acetaminophen/ Hydrocodone Bitart ([place], Anexsia 5/325) 1 tab Q4HP PRN PO PAIN Last administered on 02/22/18at 04:11; Start 02/20/18 at 16:30 Acetaminophen/ Hydrocodone Bitart ([place], Anexsia 5/325) 2 tab Q4HP PRN PO SEV ERE PAIN (PS 8-10) Last administered on 02/22/18at 08:14; Start 02/20/18 at 16:30 Albuterol Sulfate (Proventil, Ventolin Hfa) 2 puff Q2HP PRN INH wheezing; sob Last administered on 02/22/18at 03:03; Start 02/20/18 at 17:45; Stop 02/22/18 at 11:04; Status DC Albuterol/ Ipratropium (Duoneb (Ipr 0.5mg/Alb 2.5mg)) 3 ml Q4HP PRN NEB SOB/WHEEZING Last administered on 02/22/18at 00:16; Start 02/21/18 at 20:45; Stop 02/22/18 at 11:04; Status DC Enoxaparin Sodium (Lovenox) 40 mg DAILY SC ; Start 02/23/18 at 09:00 Fentanyl Citrate (Sublimaze) 25 mcg Q5MP PRN IV MODERATE PAIN (PS 4-7) Last administered on 02/20/18at 16:30; Start 02/20/18 at 16:30; Stop 02/20/18 at 17:30; Status DC Hydrochlorothiazide (Hydrodiuril) 25 mg DAILY PO Last administered on 02/22/18at 08:13; Start 02/21/18 at 09:00 Ketorolac Tromethamine (ToRADol) 15 mg Q6H PRN IV PAIN; Start 02/20/18 at 16:30; Stop 02/20/18 at 17:50; Status DC Ketorolac Tromethamine (ToRADol) 15 mg Q6HP PRN IV MILD/MODERATE PAIN (PS 1-7) Last administered on 02/20/18at 17:45; Start 02/20/18 at 17:45; Stop 02/25/18 at 17:44 Lactated Ringer's 1,000 ml @ 100 mls/hr Q10H IV ; Start 02/20/18 at 16:30; Stop 02/20/18 at 17:30; Status DC Lactated Ringer's 1,000 ml @ 100 mls/hr Q10H IV ; Start 02/20/18 at 17:38; Stop 02/20/18 at 23:23; Status DC Levalbuterol HCl (Xopenex Neb) 1.25 mg Q1HP PRN INH SHORTNESS OF BREATH; Start 02/22/18 at 11:00 Levalbuterol HCl (Xopenex Neb) 1.25 mg RQ4H INH ; Start 02/22/18 at 12:00 Levothyroxine Sodium (Synthroid) 88 mcg DAILY@0600 PO Last administered on 02/22/18at 04:10; Start 02/21/18 at 06:00 Lidocaine HCl (LIDOCAINE 1% MDV 20ml) 0.1 ml ONCE PRN SQ DISCOMFORT BEFORE IV START; Start 02/20/18 at 06:00; Stop 02/20/18 at 16:16; Status DC Meperidine HCl (Demerol) 12.5 mg Q5MP PRN IV SHIVERING; Start 02/20/18 at 16:30; Stop 02/20/18 at 17:30; Status DC Methylprednisolone (SOLUmedrol) 60 mg Q6H IV ; Start 02/22/18 at 18:00; Status UNV Metoclopramide HCl (REGLAN INJection) 10 mg Q6HP PRN IV NAUSEA OR VOMITING; Start 02/20/18 at 16:30; Stop 02/20/18 at 17:30; Status DC Morphine Sulfate (Morphine Sulfate Inj) 4 mg Q2HP PRN IV SEVERE PAIN (PS 8-10); Start 02/20/18 at 17:45 Nicotine (Nicoderm Cq 7 Mg) 1 patch DAILY TOP ; Start 02/21/18 at 09:00 Omeprazole (PriLOSEC) 20 mg DAILY PO Last administered on 02/22/18at 08:12; Start 02/21/18 at 09:00 Ondansetron HCl (ZOFRAN INJection) 4 mg Q4HP PRN IV NAUSEA OR VOMITING; Start 02/20/18 at 16:30; Stop 02/20/18 at 17:30; Status DC Ondansetron HCl (ZOFRAN INJection) 4 mg Q6HP PRN IV NAUSEA; Start 02/20/18 at 16:30; Stop 02/20/18 at 17:50; Status DC Ondansetron HCl (ZOFRAN INJection) 4 mg Q6HP PRN IV NAUSEA OR VOMITING; Start 02/20/18 at 17:45 Oxycodone/ Acetaminophen (Percocet 5mg/ 325mg Tablet) 1 tab ASDIRECTED PRN PO MILD/MODERATE PAIN (PS 1-7) Last administered on 02/20/18at 16:55; Start 02/20/18 at 16:30; Stop 02/20/18 at 17:30; Status DC Oxycodone/ Acetaminophen (Percocet 5mg/ 325mg Tablet) 1 tab Q4HP PRN PO MODERATE PAIN (PS 5-7); Start 02/20/18 at 17:45 Oxycodone/ Acetaminophen (Percocet 5mg/ 325mg Tablet) 2 tab Q6HP PRN PO SEVERE PAIN (PS 8-10); Start 02/20/18 at 17:45 Sertraline HCl (Zoloft) 100 mg DAILY PO Last administered on 02/22/18at 08:12; Start 02/21/18 at 09:00 Sodium Chloride ([place] Flush) 2 ml ASDIRECTED PRN IV SEE LABEL COMMENTS; Start 02/21/18 at 12:30 Sodium Chloride (Sal[place] Lock Flush) 2 ml SLF IV Last administered on 02/22/18at 04:11; Start 02/21/18 at 14:00 Allergies Coded Allergies: Iodine (Verified Allergy, Intermediate, itching and rash, 01/30/18) No Known Drug Allergy (Unverified Allergy, Unknown, 05/15/12) Objective Physical Examination Examination GENERAL APPEARANCE: Patient seen sitting up in the wheelchair on her way to the CT scan for her chest. Looks comfortable. Remains on nasal cannula. Reports shortness of breath. SKIN: [Warm and moist]. HEENT: [Normocephalic, atraumatic. [place] palpebral conjunctiva, anicteric sclerae. Lips and mucosa appear moist]. NECK: [Supple, no thyromegaly. No obvious jugular venous distention]. LUNGS: [Clear to auscultation bilaterally. No wheezing appreciated]. HEART: [No chest wall abnormalities. Regular rate and rhythm with no murmurs appreciated]. ABDOMEN: Abdomen is obese, soft, nondistended. Mild tenderness over the left upper quadrant area around the port site as well as the epigastric area. Port site dressings are clean, dry and intact. Nontender on the rest of the abdomen.. EXTREMITIES: Minimal lower extremity edema. Vital Signs Vital Signs Date Time Temp Pulse Resp B/P (MAP) Pulse Ox O2 Delivery O2 Flow Rate FiO2 02/22/18 12:00 97.4 106 19 154/72 (99) 94 Nasal Cannula 2.0 02/21/18 08:50 35 I&Os I&O- Last 24 Hours up to 6 AM 02/22/18 06:00 Intake Total 1310 ml Output Total 1550 ml Balance -240 ml Laboratory Data Labs 24H Laboratory Tests 2 02/22/18 09:21: Nucleated Red Blood Cells % (auto) 0.0, Anion Gap 9, Glomerular Filtration Rate > 60.0, Blood Urea Nitrogen 12, Creatinine 0.74, Sodium Level 135L, Potassium Level 3.4L, Chloride Level 96L, Carbon Dioxide Level 30, Calcium Level 9.2, Aspartate Amino Transf (AST/SGOT) 169H, Alanine Aminotransferase (ALT/SGPT) 301H, Alkaline Phosphatase 218H, Total Bilirubin 2.7#H, Total Protein 7.2, Albumin 3.1L, Albumin/Globulin Ratio 0.76L 02/22/18 11:15: Erythrocyte Sedimentation Rate 52H, D-Dimer, Quantitative 2256.67H, Lactic Acid Level 1.3, C-Reactive Protein, Quantitative 33.20H CBC/BMP Laboratory Tests 02/22/18 09:21 Red Blood Count 4.09, Mean Corpuscular Volume 92.7, Mean Corpuscular Hemoglobin 31.5, Mean Corpuscular Hemoglobin Concent 34.0, Red Cell Distribution Width 15.9 H, Calcium Level 9.2, Aspartate Amino Transf (AST/SGOT) 169 H, Alanine Aminotransferase (ALT/SGPT) 301 H, Alkaline Phosphatase 218 H, Total Bilirubin 2.7 #H, Total Protein 7.2, Albumin 3.1 L Microbiology Microbiology 02/22/18 Blood Culture, Received Pending Impression Cholelithiasis with biliary colic postop day 3 after laparoscopic cholecystectomy COPD with postoperative hypoxia improving Splenomegaly is post core biopsy Chronic kidney disease She still requires at least 2 L of O2 via nasal cannula and has somewhat limited inspiratory effort with some mild diffuse crackles. I'll give her a dose of Lasix IV. I'll last the medical service to come see her and help in the management of her COPD. This does not seem to be an exacerbation though most likely some postoperative atelectasis with some air trapping from her COPD. With regards to the cholecystectomy as well as splenic biopsies remains stable. Her hemoglobin and hematocrit is stable . Plan / VTE VTE Prophylaxis Ordered?: Yes ASCENCION HINES MD Feb 22, 2018 12:57
--- NOTE | 2018-02-22 13:54 | REP ---
BILATERAL LOWER EXTREMITY DOPPLER VENOUS ULTRASOUND: 02/22/2018. Clinical history: Lower extremity edema, evaluate for DVT. Comparison: None. Technique: The deep venous system of the bilateral lower extremities is evaluated with vital scale imaging, compression ultrasound, color imaging and duplex Doppler interrogation. Examination from the groin through the popliteal fossa into the proximal calf. Findings: There is full compressibility from the common femoral vein in the inguinal region through the popliteal vein on both sides. Color imaging confirms patency throughout the course of the deep venous system. There is respiratory variation and augmented flow at all levels. In the popliteal fossa on the left, there is a complex Sullivan's cyst 6.7 x 4.4 x 1.4 cm. Impression: 1. No Doppler venous ultrasound evidence of DVT in the bilateral lower extremities. 2. Complex Sullivan's cyst left popliteal fossa. Electronically Signed by Jamir Morton MD 02/22/2018 01:45 P
[2018-02-22 14:13] VITALS: BP 133/77
--- NOTE | 2018-02-22 14:23 | REP ---
VENTILATION-PERFUSION LUNG SCAN: HISTORY: Rule out pulmonary embolus. Tachycardia. Shortness of breath. Status post cholecystectomy. TECHNIQUE: 1.0 mCi of technetium 99m DTPA aerosol is utilized for the ventilation study and is followed by a 5.5 mCi dose of technetium 99m MAA given intravenously for the perfusion study. A sequence of eight planar images are acquired for each portion of the study. Today's chest CT study and yesterday's chest x-ray study are comparison exams. FINDINGS: There is some central bronchial deposition of inspired tracer bilaterally, consistent with some degree of COPD. Perfusion study shows generally more homogeneous uptake in the lung parenchyma than the ventilation study. There is a matched perfusion defect in the upper lobe region on the left and another in the upper lobe posteriorly on the right. No mismatched defect is seen. IMPRESSION: Low probability scan for pulmonary embolus. Electronically Signed by Adilson Dyer MD 02/22/2018 03:18 P
[2018-02-22] MEDS: methylPREDNISolone INJ 125 MG/2 ML VIAL (J2930) IV SCH ×2 (18:34→23:32)
[2018-02-22] MEDS: NICOTINE 7 MG/24 HR TRANSDERMAL TOP SCH (20:49)
[2018-02-22 22:00] VITALS: BP 147/86
[2018-02-23] MEDS: LEVALBUTEROL 1.25 MG/0.5 ML CONCENTRATE NEB INH SCH ×5 (04:00→22:53)
[2018-02-23] MEDS: SLF 3 ML SYR IV SCH ×3 (05:41→22:19)
[2018-02-23] MEDS: LEVOTHYROXINE 88MCG TABLET (0.088 MG) PO SCH (05:41)
[2018-02-23] MEDS: methylPREDNISolone INJ 125 MG/2 ML VIAL (J2930) IV SCH ×4 (05:41→23:15)
[2018-02-23 05:50] VITALS: BP 146/73
[2018-02-23 06:46] LABS: HEMATOCRIT 36.1 % (36.0-47.0); LYMPH # 0.4 10^3/uL (1.5-4.5); LYMPH % 3.5 % (24.0-44.0); MEAN CORPUSCULAR HEMOGLOBIN 30.5 pg (27.0-33.0); MEAN CORPUSCULAR HGB CONC 33.2 g/dl (32.0-36.5); MEAN CORPUSCULAR VOLUME 91.9 fl (80.0-96.0); MONO # 0.3 10^3/uL (0.0-0.8); MONO % 2.5 % (0.0-5.0); NEUTROPHILS % 93.5 % (36.0-66.0); PLATELET COUNT, AUTOMATED 172 10^3/uL (150-450); RED BLOOD COUNT 3.93 10^6/uL (4.00-5.40); WHITE BLOOD COUNT 10.7 10^3/uL (4.0-10.0)
[2018-02-23 07:11] LABS: ALBUMIN 2.9 GM/DL (3.2-5.2); ALT/SGPT 185 U/L (12-78); BILIRUBIN,DIRECT 0.4 MG/DL (0.0-0.2); BILIRUBIN,TOTAL 0.7 MG/DL (0.2-1.0); BLOOD UREA NITROGEN 13 MG/DL (7-18); CALCIUM LEVEL 9.1 MG/DL (8.8-10.2); CARBON DIOXIDE LEVEL 34 MEQ/L (21-32); CHLORIDE LEVEL 95 MEQ/L (98-107); CHOLESTEROL LEVEL 198 MG/DL (<200); CREATININE FOR GFR 0.53 MG/DL (0.55-1.30); GLOMERULAR FILTRATION RATE > 60.0 (>45); GLUCOSE, FASTING 134 MG/DL (70-100); HDL CHOLESTEROL 45 MG/DL (>40); LDL CHOLESTEROL 125 MG/DL (<100); NON-HDL-C 153 MG/DL; POTASSIUM SERUM 3.4 MEQ/L (3.5-5.1); SODIUM LEVEL 136 MEQ/L (136-145); THYROID STIMULATING HORMONE 0.173 uIU/ML (0.358-3.740); TOTAL PROTEIN 6.3 GM/DL (6.4-8.2); TRIGLYCERIDES LEVEL 142 MG/DL (<150)
[2018-02-23] MEDS: NORCO, ANEXSIA 5/325MG TABLET (HYDROcodone/ACETAMINOPHEN) PO PRN ×4 (07:22→23:15)
[2018-02-23] MEDS: OMEPRAZOLE 20 MG CAP PO SCH (08:13)
[2018-02-23] MEDS: hydroCHLOROthiazide 25 MG TAB PO SCH (08:13)
[2018-02-23] MEDS: SERTRALINE 100 MG TAB PO SCH (08:13)
[2018-02-23] MEDS: NICOTINE 7 MG/24 HR TRANSDERMAL TOP SCH (08:13)
[2018-02-23] MEDS: ENOXAPARIN 40 MG/0.4 ML SYRINGE (J1650) SC SCH (08:14)
--- NOTE | 2018-02-23 10:39 | IPNPDOC ---
Date Seen The patient was seen on 02/23/18. Progress Note SUBJECTIVE: Pt c/o dyspnea on exertion walking from the bed to the bathroom. She also c/o dry cough and difficulty expectorating sputum. no fever or chills overnight. OBJECTIVE: PHYSICAL EXAMINATION: VITALS: PLS SEE BELOW. Generally, patient is in mild respiratory distress. No use of respiratory accessory muscles. Speech if fluent. No conversational dyspnea. Face is symmetric. No cyanosis. Moist mucous membranes. No jugular venous distention (JVD). Thick neck. Lungs diminished faint expiratory wheezing, decreased air entry. Heart S1, S2. Sinus tachycardia. Abdomen is obese, status post lap cholecystectomy with multiple clean incisions. No drainage and no purulence. Nontender, nondistended. Obese abdomen. Extremities chronic lower extremity 2 + edema. LABORATORY DATA, IMAGING STUDIES, MICROBIOLOGY: REVIEWED, PLS SEE BELOW ASSESSMENT/PLAN: This is a 63-year-old female with a history of hypothyroidism, osteoarthritis (OA) multiple sites, chronic lung disease with COPD, follows with Dr. Ramírez, morbid obesity, recent incidental findings of splenomegaly, active smoker, refuses nicotine replacement therapy, vitamin D deficiency, depression, reflux disease without esophagitis, chronic lower extremity edema, hyperlipidemia, diverticulitis who presents for elective laparoscopic cholecystectomy complicated by COPD exacerbation with shortness of breath and tachycardia. The patient has been changed to the hospitalist service who will be managing her acute medical issues. Acute COPD exacerbation. Patient has audible wheezing at the bedside. She will be started on IV Solu-Medrol. Since she has significant tachycardia and palpitations she will be switched from albuterol to Xopenex at every 4 hours and every 1 hours as needed. respiratory panel, Methicillin-resistant Staphylococcus aureus (MRSA) screen, and sputum culture have been reviewed. Obtained CT of the chest without contrast due to prior history of iodine allergy to rule out early pneumonia which would be hospital acquired since it has been more than 48 hours of hospital admission, but was negative. No empiric antibiotics at this time as no infectious etiology has been determined. Acute respiratory distress secondary to COPD exacerbation with oxygen requirement, currently on 2 liters nasal cannula. Patient was evaluated for pulmonary embolism in light of the tachycardia, shortness of breath and recent surgery which was negative on VQ novoa. LE dopplers were negative for DVT. Status post laparoscopic cholecystectomy. General surgery will remain on consult for postop management. As needed [place] for pain. Monitor for respiratory acidosis and worsening respiratory distress. Hypertension on hydrochlorothiazide. Hypothyroidism no Synthroid. Check TSH level. Active tobacco abuse not on nicotine patch. Refused tobacco cessation counseling. Reflux disease without esophagitis. On chronic Prilosec. History of depression on Zoloft. Morbid obesity. BMI of 38.4, complicating acute care with possible obesity hypoventilation syndrome. Will monitor for respiratory acidosis and worsening mentation. DVT prophylaxis: lovenox disposition: sunday or sunday pending improvement in clinical status. VS, I&O, 24H, Fishbone Vital Signs/I&O Vital Signs Date Time Temp Pulse Resp B/P (MAP) Pulse Ox O2 Delivery O2 Flow Rate FiO2 02/23/18 08:12 19 02/23/18 08:00 2.0 02/23/18 05:50 97.1 71 146/73 (97) 91 Nasal Cannula 02/21/18 08:50 35 I&O- Last 24 Hours up to 6 AM 02/23/18 06:00 Intake Total 1310 ml Output Total 2150 ml Balance -840 ml Laboratory Data 24H LABS Laboratory Tests 2 02/22/18 11:15: Erythrocyte Sedimentation Rate 52H, D-Dimer, Quantitative 2256.67H, Lactic Acid Level 1.3, C-Reactive Protein, Quantitative 33.20H 02/23/18 06:13: Immature Granulocyte % (Auto) 0.5, White Blood Count 10.7H, Red Blood Count 3.93L, Hemoglobin 12.0, Hematocrit 36.1, Mean Corpuscular Volume 91.9, Mean Corpuscular Hemoglobin 30.5, Mean Corpuscular Hemoglobin Concent 33.2, Red Cell Distribution Width 15.0H, Platelet Count 172, Neutrophils (%) (Auto) 93.5H, Lymphocytes (%) (Auto) 3.5L, Monocytes (%) (Auto) 2.5, Eosinophils (%) (Auto) 0.0, Basophils (%) (Auto) 0.0, Neutrophils # (Auto) 10.0H, Lymphocytes # (Auto) 0.4L, Monocytes # (Auto) 0.3, Eosinophils # (Auto) 0.0, Basophils # (Auto) 0.0, Nucleated Red Blood Cells % (auto) 0.0, Anion Gap 7L, Glomerular Filtration Rate > 60.0, Calcium Level 9.1, Aspartate Amino Transf (AST/SGOT) 35, Alanine Amino transferase (ALT/SGPT) 185H, Alkaline Phosphatase 197H, Total Bilirubin 0.7#, Direct Bilirubin 0.4H, Total Protein 6.3L, Albumin 2.9L, Albumin/Globulin Ratio 0.85L, Triglycerides Level 142, Total Cholesterol 198, LDL Cholesterol 125H, Non-HDL Cholesterol (LDL + VLDL) 153, Total HDL Cholesterol 45, Cholesterol/HDL Ratio 4.400, Thyroid Stimulating Hormone (TSH) 0.173L CBC/BMP Laboratory Tests 02/23/18 06:13 Red Blood Count 3.93 L, Mean Corpuscular Volume 91.9, Mean Corpuscular Hemoglobin 30.5, Mean Corpuscular Hemoglobin Concent 33.2, Red Cell Distribution Width 15.0 H, Neutrophils (%) (Auto) 93.5 H, Lymphocytes (%) (Auto) 3.5 L, Monocytes (%) (Auto) 2.5, Eosinophils (%) (Auto) 0.0, Basophils (%) (Auto) 0.0, Neutrophils # (Auto) 10.0 H, Lymphocytes # (Auto) 0.4 L, Monocytes # (Auto) 0.3, Eosinophils # (Auto) 0.0, Basophils # (Auto) 0.0 Microbiology Microbiology 02/22/18 Blood Culture, Received Pending 02/22/18 Gram Stain - Final, Resulted 02/22/18 Sputum Culture, Resulted Pending 02/22/18 MRSA Screen, Resulted Pending 02/22/18 Respiratory Virus Panel (PCR) ([facility]) - Final, Resulted GEORGE VARMA MD Feb 23, 2018 09:31
[2018-02-23] MEDS: guaiFENesin ER 600 MG TAB PO SCH ×2 (11:44→20:49)
[2018-02-23 14:00] VITALS: BP 151/73
[2018-02-23 20:00] VITALS: BP 130/63
[2018-02-24] MEDS: LEVALBUTEROL 1.25 MG/0.5 ML CONCENTRATE NEB INH SCH ×5 (04:00→20:45)
[2018-02-24] MEDS: LEVOTHYROXINE 88MCG TABLET (0.088 MG) PO SCH (05:28)
[2018-02-24] MEDS: methylPREDNISolone INJ 125 MG/2 ML VIAL (J2930) IV SCH ×4 (05:28→23:18)
[2018-02-24] MEDS: SLF 3 ML SYR IV SCH ×3 (05:28→20:23)
[2018-02-24 06:00] VITALS: BP 130/77
[2018-02-24 06:21] LABS: BASO % 0.1 % (0.0-1.0); HEMATOCRIT 35.9 % (36.0-47.0); LYMPH # 0.5 10^3/uL (1.5-4.5); LYMPH % 4.7 % (24.0-44.0); MEAN CORPUSCULAR HEMOGLOBIN 30.5 pg (27.0-33.0); MEAN CORPUSCULAR HGB CONC 33.4 g/dl (32.0-36.5); MEAN CORPUSCULAR VOLUME 91.3 fl (80.0-96.0); MONO # 0.4 10^3/uL (0.0-0.8); MONO % 3.2 % (0.0-5.0); NEUTROPHILS # 10.2 10^3/uL (1.8-7.7); NEUTROPHILS % 91.4 % (36.0-66.0); PLATELET COUNT, AUTOMATED 218 10^3/uL (150-450); RED BLOOD COUNT 3.93 10^6/uL (4.00-5.40); WHITE BLOOD COUNT 11.2 10^3/uL (4.0-10.0)
[2018-02-24 06:37] LABS: ALBUMIN 2.7 GM/DL (3.2-5.2); ALT/SGPT 107 U/L (12-78); BILIRUBIN,DIRECT 0.2 MG/DL (0.0-0.2); BILIRUBIN,TOTAL 0.4 MG/DL (0.2-1.0); BLOOD UREA NITROGEN 24 MG/DL (7-18); CALCIUM LEVEL 9.7 MG/DL (8.8-10.2); CARBON DIOXIDE LEVEL 35 MEQ/L (21-32); CHLORIDE LEVEL 97 MEQ/L (98-107); CREATININE FOR GFR 0.66 MG/DL (0.55-1.30); GLOMERULAR FILTRATION RATE > 60.0 (>45); GLUCOSE, FASTING 131 MG/DL (70-100); POTASSIUM SERUM 3.2 MEQ/L (3.5-5.1); SODIUM LEVEL 138 MEQ/L (136-145); TOTAL PROTEIN 6.5 GM/DL (6.4-8.2)
[2018-02-24] MEDS: NICOTINE 7 MG/24 HR TRANSDERMAL TOP SCH (07:33)
[2018-02-24] MEDS: OMEPRAZOLE 20 MG CAP PO SCH (07:33)
[2018-02-24] MEDS: SERTRALINE 100 MG TAB PO SCH (07:33)
[2018-02-24] MEDS: ENOXAPARIN 40 MG/0.4 ML SYRINGE (J1650) SC SCH (07:33)
[2018-02-24] MEDS: hydroCHLOROthiazide 25 MG TAB PO SCH (07:33)
[2018-02-24] MEDS: guaiFENesin ER 600 MG TAB PO SCH ×2 (07:33→20:23)
[2018-02-24] MEDS ORDERED: POTASSIUM CHLORIDE 10 MEQ SR TABLET PO ONE (08:15)
[2018-02-24 08:22] LABS: MAGNESIUM LEVEL 2.2 MG/DL (1.8-2.4)
--- NOTE | 2018-02-24 12:45 | IPNPDOC ---
Text Note Date of Service The patient was seen on 02/24/18. NOTE Patient seen this am. She looks more comfortable. Still on O2 though only on 1LPM Otherwise abdomen is benign. Patient tolerating diet. Lungs slight rales, no wheezing abdomen: round, soft, nondistended. Port site dressings are clean, dry, intact Nontender on palpation Impression: cholelithiasis with biliary colic s/p laparoscopic cholecystectomy splenomegaly s/p core bx pathology remains pending COPD with exacerbation - improving D/C when medically stable per medical team. VS,Fishbone, I+O VS, Fishbone, I+O Laboratory Tests 02/24/18 05:50 Red Blood Count 3.93 L, Mean Corpuscular Volume 91.3, Mean Corpuscular Hemoglobin 30.5, Mean Corpuscular Hemoglobin Concent 33.4, Red Cell Distribution Width 14.8 H, Neutrophils (%) (Auto) 91.4 H, Lymphocytes (%) (Auto) 4.7 L, Monocytes (%) (Auto) 3.2, Eosinophils (%) (Auto) 0.0, Basophils (%) (Auto) 0.1, Neutrophils # (Auto) 10.2 H, Lymphocytes # (Auto) 0.5 L, Monocytes # (Auto) 0.4, Eosinophils # (Auto) 0.0, Basophils # (Auto) 0.0 Vital Signs Date Time Temp Pulse Resp B/P (MAP) Pulse Ox O2 Delivery O2 Flow Rate FiO2 02/24/18 12:28 91 Nasal Cannula 1.0 02/24/18 06:00 98.1 92 17 130/77 (94) 02/21/18 08:50 35 I&O- Last 24 Hours up to 6 AM 02/24/18 06:00 Intake Total 1440 ml Output Total 1300 ml Balance 140 ml ASCENCION HINES MD Feb 24, 2018 12:45
[2018-02-24 13:50] VITALS: BP 135/68
--- NOTE | 2018-02-24 18:24 | IPNPDOC ---
Date Seen The patient was seen on 02/24/18. Progress Note SUBJECTIVE: Pt remains acutely hypoxic. CT chest: copd. VQ scan negative for PE. pt continues to have bilateral end expiratory wheezing but significantly improved from admission. She continues to c/o dyspnea on exertion walking from the bed to the bathroom. She also c/o dry cough and difficulty expectorating sputum. no fever or chills overnight. OBJECTIVE: PHYSICAL EXAMINATION: VITALS: PLS SEE BELOW. Generally, patient is in mild respiratory distress. No use of respiratory accessory muscles. Speech if fluent. No conversational dyspnea. Face is symmetric. No cyanosis. Moist mucous membranes. No jugular venous distention (JVD). Thick neck. Lungs diminished faint expiratory wheezing, decreased air entry. Heart S1, S2. Sinus tachycardia. Abdomen is obese, status post lap cholecystectomy with multiple clean incisions. No drainage and no purulence. Nontender, nondistended. Obese abdomen. Extremities chronic lower extremity 2 + edema. LABORATORY DATA, IMAGING STUDIES, MICROBIOLOGY: REVIEWED, PLS SEE BELOW ASSESSMENT/PLAN: This is a 63-year-old female with a history of hypothyroidism, osteoarthritis (OA) multiple sites, chronic lung disease with COPD, follows with Dr. Ramírez, morbid obesity, recent incidental findings of splenomegaly, active smoker, refuses nicotine replacement therapy, vitamin D deficiency, depression, reflux disease without esophagitis, chronic lower extremity edema, hyperlipidemia, diverticulitis who presents for elective laparoscopic cholecystectomy complicated by COPD exacerbation with shortness of breath and tachycardia. The patient has been changed to the hospitalist service who will be managing her acute medical issues. Acute COPD exacerbation. Patient has audible wheezing at the bedside. She will be started on IV Solu-Medrol. Since she has significant tachycardia and palpitations she will be switched from albuterol to Xopenex at every 4 hours and every 1 hours as needed. respiratory panel, Methicillin-resistant Staphylococcus aureus (MRSA) screen, and sputum culture have been reviewed. Obtained CT of the chest without contrast due to prior history of iodine allergy to rule out early pneumonia which would be hospital acquired since it has been more than 48 hours of hospital admission, but was negative. No empiric antibiotics at this time as no infectious etiology has been determined. Acute hypoxic respiratory failure due to COPD exacerbation with oxygen requirement, currently on 2 liters nasal cannula. Patient was evaluated for pulmonary embolism in light of the tachycardia, shortness of breath and recent surgery which was negative on VQ novoa. LE dopplers were negative for DVT. Acute Copd exacerbation on iv solumedrol nebs, resumed QVAR, supplemental oxygen. reasonable to start on shurt course of azithro for antiinflammatory effect. no other signs of infection. Status post laparoscopic cholecystectomy. General surgery will remain on consult for postop management. As needed [place] for pain. Monitor for respiratory acidosis and worsening respiratory distress. Hypertension on hydrochlorothiazide. Hypothyroidism no Synthroid. Check TSH level. Active tobacco abuse not on nicotine patch. Refused tobacco cessation counseling. Reflux disease without esophagitis. On chronic Prilosec. History of depression on Zoloft. Morbid obesity. BMI of 38.4, complicating acute care with possible obesity hypoventilation syndrome. Will monitor for respiratory acidosis and worsening mentation. DVT prophylaxis: lovenox disposition: sunday or sunday pending improvement in clinical status. VS, I&O, 24H, Fishbone Vital Signs/I&O Vital Signs Date Time Temp Pulse Resp B/P (MAP) Pulse Ox O2 Delivery O2 Flow Rate FiO2 02/24/18 15:30 86 Nasal Cannula 1.0 02/24/18 13:50 98.2 98 18 135/68 (90) 02/21/18 08:50 35 I&O- Last 24 Hours up to 6 AM 02/24/18 06:00 Intake Total 1440 ml Output Total 1300 ml Balance 140 ml Laboratory Data 24H LABS Laboratory Tests 2 02/24/18 05:50: Immature Granulocyte % (Auto) 0.6, White Blood Count 11.2H, Red Blood Count 3.93L, Hemoglobin 12.0, Hematocrit 35.9L, Mean Corpuscular Volume 91.3, Mean Corpuscular Hemoglobin 30.5, Mean Corpuscular Hemoglobin Concent 33.4, Red Cell Distribution Width 14.8H, Platelet Count 218, Neutrophils (%) (Auto) 91.4H, Lymphocytes (%) (Auto) 4.7L, Monocytes (%) (Auto) 3.2, Eosinophils (%) (Auto) 0.0, Basophils (%) (Auto) 0.1, Neutrophils # (Auto) 10.2H, Lymphocytes # (Auto) 0.5L, Monocytes # (Auto) 0.4, Eosinophils # (Auto) 0.0, Basophils # (Auto) 0.0, Nucleated Red Blood Cells % (auto) 0.0, Anion Gap 6L, Glomerular Filtration Rate > 60.0, Calcium Level 9.7, Magnesium Level 2.2, Aspartate Amino Transf (AST/SGOT) 7, Alanine Aminotransferase (ALT/SGPT) 107H, Alkaline Phosphatase 152H, Total Bilirubin 0.4, Direct Bilirubin 0.2, Total Protein 6.5, Albumin 2.7L, Albumin/Globulin Ratio 0.71L CBC/BMP Laboratory Tests 02/24/18 05:50 Red Blood Count 3.93 L, Mean Corpuscular Volume 91.3, Mean Corpuscular Hemoglo bin 30.5, Mean Corpuscular Hemoglobin Concent 33.4, Red Cell Distribution Width 14.8 H, Neutrophils (%) (Auto) 91.4 H, Lymphocytes (%) (Auto) 4.7 L, Monocytes (%) (Auto) 3.2, Eosinophils (%) (Auto) 0.0, Basophils (%) (Auto) 0.1, Neutrophils # (Auto) 10.2 H, Lymphocytes # (Auto) 0.5 L, Monocytes # (Auto) 0.4, Eosinophils # (Auto) 0.0, Basophils # (Auto) 0.0 Microbiology Microbiology 02/22/18 Blood Culture - Preliminary, Resulted No Growth after 48 hours. All Specime... 02/22/18 Gram Stain - Final, Complete 02/22/18 Sputum Culture - Final, Complete 02/22/18 MRSA Screen - Final, Complete 02/22/18 Respiratory Virus Panel (PCR) ([facility]) - Final, Complete GEORGE VARMA MD Feb 24, 2018 18:24
[2018-02-24] MEDS ORDERED: AZITHROMYCIN 250 MG TAB PO ONE (20:00)
[2018-02-24] MEDS ORDERED: QVAR 80 MCG INH SCH (21:00)
[2018-02-24 22:00] VITALS: BP 147/70
[2018-02-25] MEDS: LEVALBUTEROL 1.25 MG/0.5 ML CONCENTRATE NEB INH SCH ×6 (00:32→20:53)
[2018-02-25] MEDS: LEVOTHYROXINE 88MCG TABLET (0.088 MG) PO SCH (05:51)
[2018-02-25] MEDS: SLF 3 ML SYR IV SCH ×3 (05:52→20:21)
[2018-02-25] MEDS: methylPREDNISolone INJ 125 MG/2 ML VIAL (J2930) IV SCH ×3 (05:52→17:37)
[2018-02-25 06:02] VITALS: BP 134/76
[2018-02-25 06:28] LABS: BASO % 0.1 % (0.0-1.0); HEMATOCRIT 35.9 % (36.0-47.0); HEMOGLOBIN 11.9 g/dl (12.0-15.5); LYMPH # 0.6 10^3/uL (1.5-4.5); MEAN CORPUSCULAR HEMOGLOBIN 30.4 pg (27.0-33.0); MEAN CORPUSCULAR HGB CONC 33.1 g/dl (32.0-36.5); MEAN CORPUSCULAR VOLUME 91.8 fl (80.0-96.0); MONO # 0.3 10^3/uL (0.0-0.8); MONO % 4.2 % (0.0-5.0); NEUTROPHILS # 6.9 10^3/uL (1.8-7.7); PLATELET COUNT, AUTOMATED 233 10^3/uL (150-450); RED BLOOD COUNT 3.91 10^6/uL (4.00-5.40); WHITE BLOOD COUNT 7.9 10^3/uL (4.0-10.0)
[2018-02-25 06:45] LABS: ALBUMIN 2.6 GM/DL (3.2-5.2); ALT/SGPT 66 U/L (12-78); BILIRUBIN,DIRECT 0.2 MG/DL (0.0-0.2); BILIRUBIN,TOTAL 0.3 MG/DL (0.2-1.0); BLOOD UREA NITROGEN 27 MG/DL (7-18); CALCIUM LEVEL 9.3 MG/DL (8.8-10.2); CARBON DIOXIDE LEVEL 35 MEQ/L (21-32); CHLORIDE LEVEL 99 MEQ/L (98-107); GLOMERULAR FILTRATION RATE > 60.0 (>45); GLUCOSE, FASTING 136 MG/DL (70-100); POTASSIUM SERUM 3.7 MEQ/L (3.5-5.1); SODIUM LEVEL 139 MEQ/L (136-145); TOTAL PROTEIN 6.2 GM/DL (6.4-8.2)
--- NOTE | 2018-02-25 08:18 | IPNPDOC ---
Date Seen The patient was seen on 02/25/18. Progress Note SUBJECTIVE: "I feel much better, but still sob when I walk." CT chest: copd. VQ scan negative for PE. pt continues to have bilateral faint end expiratory wheezing but significantly improved from admission. She continues to c/o dyspnea on exertion walking from the bed to the bathroom. She also c/o dry cough and difficulty expectorating sputum. no fever or chills overnight. OBJECTIVE: PHYSICAL EXAMINATION: VITALS: PLS SEE BELOW. Generally, patient is in mild respiratory distress. No use of respiratory accessory muscles. Speech if fluent. No conversational dyspnea. Face is symmetric. No cyanosis. Moist mucous membranes. No jugular venous distention (JVD). Thick neck. Lungs diminished faint expiratory wheezing, decreased air entry. Heart S1, S2. Sinus tachycardia. Abdomen is obese, status post lap cholecystectomy with multiple clean incisions. No drainage and no purulence. Nontender, nondistended. Obese abdomen. Extremities chronic lower extremity 2 + edema. LABORATORY DATA, IMAGING STUDIES, MICROBIOLOGY: REVIEWED, PLS SEE BELOW ASSESSMENT/PLAN: This is a 63-year-old female with a history of hypothyroidism, osteoarthritis (OA) multiple sites, chronic lung disease with COPD, follows with Dr. Ramírez, morbid obesity, recent incidental findings of splenomegaly, active smoker, refuses nicotine replacement therapy, vitamin D deficiency, depression, reflux disease without esophagitis, chronic lower extremity edema, hyperlipidemia, diverticulitis who presents for elective laparoscopic cholecystectomy complicated by COPD exacerbation with shortness of breath and tachycardia. The patient has been changed to the hospitalist service who will be managing her acute medical issues. Acute COPD exacerbation. Patient has audible wheezing at the bedside. She will be started on IV Solu-Medrol. Since she has significant tachycardia and palpitations she will be switched from albuterol to Xopenex at every 4 hours and every 1 hours as needed. respiratory panel, Methicillin-resistant Staphylococcus aureus (MRSA) screen, and sputum culture have been reviewed. Obtained CT of the chest without contrast due to prior history of iodine allergy to rule out early pneumonia which would be hospital acquired since it has been more than 48 hours of hospital admission, but was negative. No empiric antibiotics at this time as no infectious etiology has been determined. Acute hypoxic respiratory failure due to COPD exacerbation with oxygen requirement, currently on 2 liters nasal cannula. Patient was evaluated for pulmonary embolism in light of the tachycardia, shortness of breath and recent surgery which was negative on VQ novoa. LE dopplers were negative for DVT. Acute Copd exacerbation on iv solumedrol nebs, resumed QVAR, supplemental oxygen. reasonable to start on shurt course of azithro for antiinflammatory effect. no other signs of infection. Status post laparoscopic cholecystectomy. General surgery will remain on consult for postop management. As needed [place] for pain. Monitor for respiratory acidosis and worsening respiratory distress. Hypertension on hydrochlorothiazide. Hypothyroidism no Synthroid. Check TSH level. Active tobacco abuse not on nicotine patch. Refused tobacco cessation counseling. Reflux disease without esophagitis. On chronic Prilosec. History of depression on Zoloft. Morbid obesity. BMI of 38.4, complicating acute care with possible obesity hypoventilation syndrome. Will monitor for respiratory acidosis and worsening mentation. DVT prophylaxis: lovenox disposition: sunday or pending improvement in clinical status. VS, I&O, 24H, [facility] Vital Signs/I&O Vital Signs Date Time Temp Pulse Resp B/P (MAP) Pulse Ox O2 Delivery O2 Flow Rate FiO2 02/25/18 06:02 97.9 77 16 134/76 (95) 95 Nasal Cannula 1.0 02/21/18 08:50 35 I&O- Last 24 Hours up to 6 AM 02/25/18 06:00 Intake Total 1080 ml Output Total 750 ml Balance 330 ml Laboratory Data 24H LABS Laboratory Tests 2 02/25/18 05:53: Anion Gap 5L, Glomerular Filtration Rate > 60.0, Calcium Level 9.3, Aspartate Amino Transf (AST/SGOT) 4L, Alanine Aminotransferase (ALT/SGPT) 66, Alkaline Phosphatase 126H, Total Bilirubin 0.3, Direct Bilirubin 0.2, Total Protein 6.2L, Albumin 2.6L, Albumin/Globulin Ratio 0.72L 02/25/18 05:54: Immature Granulocyte % (Auto) 1.7, White Blood Count 7.9, Red Blood Count 3.91L, Hemoglobin 11.9L, Hematocrit 35.9L, Mean Corpuscular Volume 91.8, Mean Corpuscular Hemoglobin 30.4, Mean Corpuscular Hemoglobin Concent 33.1, Red Cell Distribution Width 14.8H, Platelet Count 233, Neutrophils (%) (Auto) 87.0H, Lymphocytes (%) (Auto) 7.0L, Monocytes (%) (Auto) 4.2, Eosinophils (%) (Auto) 0.0, Basophils (%) (Auto) 0.1, Neutrophils # (Auto) 6.9, Lymphocytes # (Auto) 0.6L, Monocytes # (Auto) 0.3, Eosinophils # (Auto) 0.0, Basophils # (Auto) 0.0, Nucleated Red Blood Cells % (auto) 0.0 CBC/BMP Laboratory Tests 02/25/18 05:53 02/25/18 05:54 Red Blood Count 3.91 L, Mean Corpuscular Volume 91.8, Mean Corpuscular Hemoglobin 30.4, Mean Corpuscular Hemoglobin Concent 33.1, Red Cell Distribution Width 14.8 H, Neutrophils (%) (Auto) 87.0 H, Lymphocytes (%) (Auto) 7.0 L, Monocytes (%) (Auto) 4.2, Eosinophils (%) (Auto) 0.0, Basophils (%) (Auto) 0.1, Neutrophils # (Auto) 6.9, Lymphocytes # (Auto) 0.6 L, Monocytes # (Auto) 0.3, Eosinophils # (Auto) 0.0, Basophils # (Auto) 0.0 Microbiology Microbiology 02/22/18 Blood Culture - Preliminary, Resulted No Growth after 48 hours. All Specime... 02/22/18 Gram Stain - Final, Complete 02/22/18 Sputum Culture - Final, Complete 02/22/18 MRSA Screen - Final, Complete 02/22/18 Respiratory Virus Panel (PCR) ([facility]) - Final, Complete GEORGE VARMA MD Feb 25, 2018 08:18
[2018-02-25] MEDS: NICOTINE 7 MG/24 HR TRANSDERMAL TOP SCH (09:00)
[2018-02-25] MEDS: OMEPRAZOLE 20 MG CAP PO SCH (09:04)
[2018-02-25] MEDS: AZITHROMYCIN 250 MG TAB PO SCH (09:04)
[2018-02-25] MEDS: SERTRALINE 100 MG TAB PO SCH (09:04)
[2018-02-25] MEDS: hydroCHLOROthiazide 25 MG TAB PO SCH (09:04)
[2018-02-25] MEDS: guaiFENesin ER 600 MG TAB PO SCH ×2 (09:04→20:21)
[2018-02-25] MEDS: ENOXAPARIN 40 MG/0.4 ML SYRINGE (J1650) SC SCH (09:05)
[2018-02-25 14:03] VITALS: BP 119/73
[2018-02-25 20:00] VITALS: BP 138/74
[2018-02-26] MEDS: methylPREDNISolone INJ 125 MG/2 ML VIAL (J2930) IV SCH ×4 (01:38→11:37)
[2018-02-26 05:00] VITALS: BP 145/76
[2018-02-26] MEDS: LEVOTHYROXINE 88MCG TABLET (0.088 MG) PO SCH (05:59)
[2018-02-26] MEDS: SLF 3 ML SYR IV SCH ×3 (05:59→20:34)
[2018-02-26 06:40] LABS: BASO % 0.1 % (0.0-1.0); HEMATOCRIT 37.7 % (36.0-47.0); HEMOGLOBIN 12.7 g/dl (12.0-15.5); LYMPH # 0.7 10^3/uL (1.5-4.5); LYMPH % 7.6 % (24.0-44.0); MEAN CORPUSCULAR HEMOGLOBIN 30.8 pg (27.0-33.0); MEAN CORPUSCULAR HGB CONC 33.7 g/dl (32.0-36.5); MEAN CORPUSCULAR VOLUME 91.3 fl (80.0-96.0); MONO # 0.5 10^3/uL (0.0-0.8); MONO % 4.9 % (0.0-5.0); NEUTROPHILS # 8.3 10^3/uL (1.8-7.7); NEUTROPHILS % 85.1 % (36.0-66.0); PLATELET COUNT, AUTOMATED 230 10^3/uL (150-450); RED BLOOD COUNT 4.13 10^6/uL (4.00-5.40); WHITE BLOOD COUNT 9.8 10^3/uL (4.0-10.0)
[2018-02-26 07:12] LABS: ALBUMIN 2.7 GM/DL (3.2-5.2); ALT/SGPT 46 U/L (12-78); BILIRUBIN,DIRECT 0.1 MG/DL (0.0-0.2); BILIRUBIN,TOTAL 0.3 MG/DL (0.2-1.0); BLOOD UREA NITROGEN 28 MG/DL (7-18); CALCIUM LEVEL 9.2 MG/DL (8.8-10.2); CARBON DIOXIDE LEVEL 33 MEQ/L (21-32); CHLORIDE LEVEL 100 MEQ/L (98-107); GLOMERULAR FILTRATION RATE > 60.0 (>45); GLUCOSE, FASTING 117 MG/DL (70-100); POTASSIUM SERUM 4.1 MEQ/L (3.5-5.1); SODIUM LEVEL 140 MEQ/L (136-145); TOTAL PROTEIN 6.1 GM/DL (6.4-8.2)
[2018-02-26] MEDS: LEVALBUTEROL 1.25 MG/0.5 ML CONCENTRATE NEB INH SCH ×3 (07:45→11:34)
[2018-02-26] MEDS: AZITHROMYCIN 250 MG TAB PO SCH (08:00)
[2018-02-26] MEDS: SERTRALINE 100 MG TAB PO SCH (08:01)
[2018-02-26] MEDS: guaiFENesin ER 600 MG TAB PO SCH ×2 (08:01→20:34)
[2018-02-26] MEDS: hydroCHLOROthiazide 25 MG TAB PO SCH (08:01)
[2018-02-26] MEDS: OMEPRAZOLE 20 MG CAP PO SCH (08:01)
[2018-02-26] MEDS: NICOTINE 7 MG/24 HR TRANSDERMAL TOP SCH (08:02)
[2018-02-26] MEDS: ENOXAPARIN 40 MG/0.4 ML SYRINGE (J1650) SC SCH (08:02)
[2018-02-26] MEDS ORDERED: methylPREDNISolone INJ 125 MG/2 ML VIAL (J2930) IV SCH (13:15)
[2018-02-26] MEDS ORDERED: ALBUTEROL SULFATE 2.5 MG/0.5 ML INH NEB SOLN NEB PRN (13:15)
--- NOTE | 2018-02-26 13:24 | IPNPDOC ---
Text Note Date of Service The patient was seen on 02/26/18. NOTE SUBJECTIVE: Does not offer any complaints this morning. Still needing oxygen. She continues to c/o dyspnea on exertion walking from the bed to the bathroom. She also c/o dry cough and difficulty expectorating sputum. no fever or chills overnight. OBJECTIVE: PHYSICAL EXAMINATION: VITALS: PLS SEE BELOW. Generally, patient is in mild respiratory distress. No use of respiratory accessory muscles. Speech if fluent. No conversational dyspnea. Face is symmetric. No cyanosis. Moist mucous membranes. No jugular venous distention (JVD). Thick neck. Lungs diminished faint expiratory wheezing, decreased air entry. Heart S1, S2. Sinus tachycardia. Abdomen is obese, status post lap cholecystectomy with multiple clean incisions. No drainage and no purulence. Nontender, nondistended. Obese abdomen. Extremities chronic lower extremity 2 + edema. LABORATORY DATA, IMAGING STUDIES, MICROBIOLOGY: REVIEWED, PLS SEE BELOW ASSESSMENT/PLAN: This is a 63-year-old female with a history of hypothyroidism, osteoarthritis (OA) multiple sites, chronic lung disease with COPD, follows with Dr. Ramírez, morbid obesity, recent incidental findings of splenomegaly, active smoker, refuses nicotine replacement therapy, vitamin D deficiency, depression, reflux disease without esophagitis, chronic lower extremity edema, hyperlipidemia, diverticulitis who presents for elective laparoscopic cholecystectomy complicated by COPD exacerbation with shortness of breath and tachycardia. The patient has been changed to the hospitalist service who will be managing her acute medical issues. Acute COPD exacerbation Patient is on Anoro and Qvar at home here will give formoterol and spiriva, will continue qvar will reduce dose of methyl pred. continue azithromycin. continue albuterol prn. Acute hypoxic respiratory failure due to COPD exacerbation with oxygen. Negative PE study. currently on 2 liters nasal cannula. May need home oxygen. Status post laparoscopic cholecystectomy. General surgery will remain on consult for postop management. As needed [place] for pain. Monitor for respiratory acidosis and worsening respiratory distress. Hypertension on hydrochlorothiazide. Hypothyroidism no Synthroid. Check TSH level. Active tobacco abuse not on nicotine patch. Refused tobacco cessation counseling. Reflux disease without esophagitis. On chronic Prilosec. History of depression on Zoloft. Obesity. BMI of 38.4, complicating acute care with possible obesity hypoventilation syndrome. Will monitor for respiratory acidosis and worsening mentation. DVT prophylaxis: lovenox VS,Fishbone, I+O VS, Fishbone, I+O Laboratory Tests 02/26/18 06:27 Red Blood Count 4.13, Mean Corpuscular Volume 91.3, Mean Corpuscular Hemoglobin 30.8, Mean Corpuscular Hemoglobin Concent 33.7, Red Cell Distribution Width 14.7 H, Neutrophils (%) (Auto) 85.1 H, Lymphocytes (%) (Auto) 7.6 L, Monocytes (%) (Auto) 4.9, Eosinophils (%) (Auto) 0.0, Basophils (%) (Auto) 0.1, Neutrophils # (Auto) 8.3 H, Lymphocytes # (Auto) 0.7 L, Monocytes # (Auto) 0.5, Eosinophils # (Auto) 0.0, Basophils # (Auto) 0.0 Vital Signs Date Time Temp Pulse Resp B/P (MAP) Pulse Ox O2 Delivery O2 Flow Rate FiO2 02/26/18 12:23 89 Room Air 02/26/18 09:00 2.0 02/26/18 05:00 97.1 70 18 145/76 (99) 02/21/18 08:50 35 I&O- Last 24 Hours up to 6 AM 02/26/18 06:00 Intake Total 1170 ml Output Total 1250 ml Balance -80 ml MARCO VALDEZ MD Feb 26, 2018 13:24
[2018-02-26] MEDS: TIOTROPIUM INHALER/CAPSULE (SPIRIVA) INH SCH (13:58)
[2018-02-26] MEDS: FORMOTEROL FUMARATE 20 MCG/2 ML INHALATION SOLUTION (PERFOROMIST) INH SCH ×2 (13:58→20:26)
[2018-02-26 14:00] VITALS: BP 136/71
[2018-02-26 22:00] VITALS: BP 142/83
[2018-02-27] MEDS: LEVOTHYROXINE 88MCG TABLET (0.088 MG) PO SCH (05:59)
[2018-02-27 06:00] VITALS: BP 158/85
[2018-02-27] MEDS: SLF 3 ML SYR IV SCH (06:00)
[2018-02-27 06:38] LABS: BASO # 0.1 10^3/uL (0.0-0.2); BASO % 0.4 % (0.0-1.0); EOS # 0.1 10^3/uL (0.0-0.50); EOS % 0.5 % (0.0-3.0); HEMATOCRIT 41.1 % (36.0-47.0); HEMOGLOBIN 13.6 g/dl (12.0-15.5); LYMPH # 1.9 10^3/uL (1.5-4.5); LYMPH % 14.8 % (24.0-44.0); MEAN CORPUSCULAR HEMOGLOBIN 30.6 pg (27.0-33.0); MEAN CORPUSCULAR HGB CONC 33.1 g/dl (32.0-36.5); MEAN CORPUSCULAR VOLUME 92.4 fl (80.0-96.0); MONO # 1.1 10^3/uL (0.0-0.8); NEUTROPHILS # 9.5 10^3/uL (1.8-7.7); NEUTROPHILS % 72.3 % (36.0-66.0); PLATELET COUNT, AUTOMATED 226 10^3/uL (150-450); RED BLOOD COUNT 4.45 10^6/uL (4.00-5.40); WHITE BLOOD COUNT 13.1 10^3/uL (4.0-10.0)
[2018-02-27 07:06] LABS: ALBUMIN 2.5 GM/DL (3.2-5.2); ALT/SGPT 31 U/L (12-78); BILIRUBIN,DIRECT 0.2 MG/DL (0.0-0.2); BILIRUBIN,TOTAL 0.4 MG/DL (0.2-1.0); BLOOD UREA NITROGEN 29 MG/DL (7-18); CALCIUM LEVEL 8.7 MG/DL (8.8-10.2); CARBON DIOXIDE LEVEL 32 MEQ/L (21-32); CHLORIDE LEVEL 102 MEQ/L (98-107); CREATININE FOR GFR 0.75 MG/DL (0.55-1.30); GLOMERULAR FILTRATION RATE > 60.0 (>45); GLUCOSE, FASTING 82 MG/DL (70-100); POTASSIUM SERUM 3.5 MEQ/L (3.5-5.1); SODIUM LEVEL 143 MEQ/L (136-145); TOTAL PROTEIN 5.5 GM/DL (6.4-8.2)
[2018-02-27] MEDS: TIOTROPIUM INHALER/CAPSULE (SPIRIVA) INH SCH (08:08)
[2018-02-27] MEDS: FORMOTEROL FUMARATE 20 MCG/2 ML INHALATION SOLUTION (PERFOROMIST) INH SCH (08:08)
[2018-02-27] MEDS: ENOXAPARIN 40 MG/0.4 ML SYRINGE (J1650) SC SCH (08:18)
[2018-02-27] MEDS: AZITHROMYCIN 250 MG TAB PO SCH (08:19)
[2018-02-27] MEDS: SERTRALINE 100 MG TAB PO SCH (08:19)
[2018-02-27] MEDS: OMEPRAZOLE 20 MG CAP PO SCH (08:19)
[2018-02-27] MEDS: hydroCHLOROthiazide 25 MG TAB PO SCH (08:19)
[2018-02-27] MEDS: guaiFENesin ER 600 MG TAB PO SCH (08:19)
[2018-02-27] MEDS: NICOTINE 7 MG/24 HR TRANSDERMAL TOP SCH (08:20)
[2018-02-27] MEDS ORDERED: PRED10TA2 PO (08:57)
[2018-02-27] MEDS ORDERED: predniSONE 20 MG TAB PO SCH (09:00)
--- NOTE | 2018-02-27 23:09 | DS.PDOC ---
Discharge Summary General Date of Admission Feb 22, 2018 at 11:26 Date of Discharge 02/27/18, PCP Leslie Gaytan Attending Physician: MARCO VALDEZ MD Specialist/Consultants Involve: ASCENCION HINES MD Discharge Summary PROCEDURES PERFORMED DURING STAY: Lap cholecystectomy ADMITTING DIAGNOSES: 1.Elective laparoscopic cholecystectommy DISCHARGE DIAGNOSES: COPD exacerbation Acute hypoxic respiratory failure Laparoscopic cholecystectomy Hypertension Hypothyroid Hyperlipidemia Smoker GERD Obesity depression COMPLICATIONS/CHIEF COMPLAINT: Cholelithiasis. HISTORY OF PRESENT ILLNESS: Please see History and physical HOSPITAL COURSE: This is a 63-year-old female with a history of hypothyroidism, osteoarthritis (OA) multiple sites, chronic lung disease with COPD, follows with Dr. Ramírez, morbid obesity, recent incidental findings of splenomegaly, active smoker, refuses nicotine replacement therapy, vitamin D deficiency, depression, reflux disease without esophagitis, chronic lower extremity edema, hyperlipidemia, diverticulitis who presents for elective laparoscopic cholecystectomy complicated by COPD exacerbation with shortness of breath and tachycardia. The patient has been changed to the hospitalist service who will be managing her acute medical issues. Acute COPD exacerbation Patient is on Anoro and Qvar at home here will give formoterol and spiriva, will continue qvar will reduce dose of methyl pred. will finish azithromycin. continue albuterol prn. Acute hypoxic respiratory failure due to COPD exacerbation with oxygen. Negative PE study. currently on 2 liters nasal cannula. May need home oxygen. Status post laparoscopic cholecystectomy. General surgery will remain on consult for postop management. As needed [place] for pain. Monitor for respiratory acidosis and worsening respiratory distress. Hypertension on hydrochlorothiazide. Hypothyroidism no Synthroid. Check TSH level. Active tobacco abuse not on nicotine patch. Refused tobacco cessation counseling. Reflux disease without esophagitis. On chronic Prilosec. History of depression on Zoloft. Obesity. BMI of 38.4, complicating acute care with possible obesity hypoventilation syndrome. Will monitor for respiratory acidosis and worsening mentation. DVT prophylaxis: lovenox DISCHARGE MEDICATIONS: Please see below. ALLERGIES: Please see below. PHYSICAL EXAMINATION ON DISCHARGE: VITAL SIGNS: Please see below. Generally, patient is in mild respiratory distress. No use of respiratory accessory muscles. Speech if fluent. No conversational dyspnea. Face is symmetric. No cyanosis. Moist mucous membranes. No jugular venous distention (JVD). Thick neck. Lungs diminished faint expiratory wheezing, decreased air entry. Heart S1, S2. Sinus tachycardia. Abdomen is obese, status post lap cholecystectomy with multiple clean incisions. No drainage and no purulence. Nontender, nondistended. Obese abdomen. Extremities chronic lower extremity 2 + edema. LABORATORY DATA: Please see below. ACTIVITY: [As tolerated]. DIET: Low fat DISPOSITION: 01 Home, Self-Care. DISCHARGE INSTRUCTIONS: 1. Follow up with PMD in 1 weeK DISCHARGE CONDITION: [Stable]. TIME SPENT ON DISCHARGE: Greater than 30 minutes. Vital Signs/I&Os Vital Signs Date Time Temp Pulse Resp B/P (MAP) Pulse Ox O2 Delivery O2 Flow Rate FiO2 02/27/18 06:00 98.1 72 18 158/85 (109) 90 Room Air 02/26/18 09:00 2.0 02/21/18 08:50 35 I&O- Last 24 Hours up to 6 AM 02/27/18 06:00 Intake Total 900 ml Output Total 650 ml Balance 250 ml Laboratory Data Labs 24H Laboratory Tests 2 02/27/18 06:19: Immature Granulocyte % (Auto) 4.0H, White Blood Count 13.1H, Red Blood Count 4.45, Hemoglobin 13.6, Hematocrit 41.1, Mean Corpuscular Volume 92.4, Mean Corpuscular Hemoglobin 30.6, Mean Corpuscular Hemoglobin Concent 33.1, Red Cell Distribution Width 14.9H, Platelet Count 226, Neutrophils (%) (Auto) 72.3H, Lymp hocytes (%) (Auto) 14.8L, Monocytes (%) (Auto) 8.0H, Eosinophils (%) (Auto) 0.5, Basophils (%) (Auto) 0.4, Neutrophils # (Auto) 9.5H, Lymphocytes # (Auto) 1.9, Monocytes # (Auto) 1.1H, Eosinophils # (Auto) 0.1, Basophils # (Auto) 0.1, Nucleated Red Blood Cells % (auto) 0.2H, Anion Gap 9, Glomerular Filtration Rate > 60.0, Calcium Level 8.7L, Aspartate Amino Transf (AST/SGOT) 4L, Alanine Aminotransferase (ALT/SGPT) 31, Alkaline Phosphatase 98, Total Bilirubin 0.4, Direct Bilirubin 0.2, Total Protein 5.5L, Albumin 2.5L, Albumin/Globulin Ratio 0.83L CBC/BMP Laboratory Tests 02/27/18 06:19 Red Blood Count 4.45, Mean Corpuscular Volume 92.4, Mean Corpuscular Hemoglobin 30.6, Mean Corpuscular Hemoglobin Concent 33.1, Red Cell Distribution Width 14.9 H, Neutrophils (%) (Auto) 72.3 H, Lymphocytes (%) (Auto) 14.8 L, Monocytes (%) (Auto) 8.0 H, Eosinophils (%) (Auto) 0.5, Basophils (%) (Auto) 0.4, Neutrophils # (Auto) 9.5 H, Lymphocytes # (Auto) 1.9, Monocytes # (Auto) 1.1 H, Eosinophils # (Auto) 0.1, Basophils # (Auto) 0.1 Microbiology Microbiology 02/22/18 Blood Culture - Final, Complete NO GROWTH AFTER 5 DAYS 02/22/18 Gram Stain - Final, Complete 02/22/18 Sputum Culture - Final, Complete 02/22/18 MRSA Screen - Final, Complete 02/22/18 Respiratory Virus Panel (PCR) (CHERY) - Final, Complete Discharge Medications Scheduled (Anoro Ellipta 62.5-25 Mcg/INH) 1 Aer Aer, 1 PUFF PO DAILY, (Reported) Beclomethasone Dipropionate (Qvar Redihaler) 80 Mcg/Act Aer, 80 MCG INH BID, (Reported) Hydrochlorothiazide (Hydrochlorothiazide) 25 Mg Tab, 25 MG PO DAILY, (Reported) Levothyroxine Sodium (Synthroid) 88 Mcg Tab, 88 MCG PO DAILY, (Reported) Nicotine (Nicotine Transdermal Syst) 7 Mg/24 Hr Dis, 1 PATCH TOP DAILY for smoking cessation, (Reported) Omeprazole Magnesium (Prilosec Otc) 20 Mg Tab, 20 MG PO DAILY, (Reported) Prednisone (Prednisone) 10 Mg Tab, 10 MG PO TAPER Take 4 tabs daily x 3 days, then 3 tabs daily x 3 days, then 2 tabs daily x 3 days, then 1 tab daily x 3 days and stop Sertraline Hcl (Zoloft) 100 Mg Tab, 100 MG PO DAILY, (Reported) Vitamin D (Drisdol) 50,000 Unit Cap, 50,000 UNIT PO QWEEK, (Reported) SUNDAY Scheduled PRN Albuterol Sulfate (Proair Hfa) 108 Mcg/Act Aer, 2 PUFF INH Q4-6HP PRN for wheezing, (Reported) Allergies Coded Allergies: Iodine (Verified Allergy, Intermediate, itching and rash, 01/30/18) MARCO VALDEZ MD Feb 27, 2018 23:09
== END 2018-02-27 10:55 | disposition home or self-care (01) | DRG 951 ==
LOC: M SDC 11:53 → M ICU 18:20 → M PCU 02-21 01:51 → M SDC 02-22 11:25 → M PCU 02-22 11:26 → M MS4PR 02-22 14:26
PROVIDERS: ADMIT General Practice; ATTEND Internal Medicine Nephrology
PROC: 07B Lymphatic and Hemic Systems, Excision (ICD-10-PCS; 2018-02-20)
PROC: 0FT44ZZ Resection of Gallbladder, Percutaneous Endoscopic Approach (ICD-10-PCS; principal; 2018-02-20 14:30)
DX: J44.1 Chronic obstructive pulmonary disease with (acute) exacerbation (principal); J96.01 Acute respiratory failure with hypoxia; K80.10 Calculus of gallbladder with chronic cholecystitis without obstruction; E66.01 Morbid (severe) obesity due to excess calories; E55.9 Vitamin D deficiency, unspecified; R16.1 Splenomegaly, not elsewhere classified; F17.200 Nicotine dependence, unspecified, uncomplicated; I10 Essential (primary) hypertension; K21.9 Gastro-esophageal reflux disease without esophagitis; E03.9 Hypothyroidism, unspecified; E78.5 Hyperlipidemia, unspecified; F32.9 Major depressive disorder, single episode, unspecified; Z68.38 Body mass index [BMI] 38.0-38.9, adult

== ENCOUNTER → 2018-03-20 | Outpatient (REF) | payer OTHER ==
[~2018-03-20] MED LIST changes: -AMPICILLIN SOD/SULBACTAM SOD 3 GM in D5W MINI-BAG PLUS 100 ML IV ONE; -LIDOCAINE 1% MDV 20ML VIAL SQ PRN; -LR 1,000 ML IV ONE; +PRED10TA2 PO
[2018-03-20 09:46] LABS: BASO % 0.2 % (0.0-1.0); EOS # 0.2 10^3/uL (0.0-0.50); EOS % 2.7 % (0.0-3.0); HEMATOCRIT 37.1 % (36.0-47.0); HEMOGLOBIN 12.7 g/dl (12.0-15.5); LYMPH # 1.3 10^3/uL (1.5-4.5); LYMPH % 19.8 % (24.0-44.0); MEAN CORPUSCULAR HEMOGLOBIN 30.2 pg (27.0-33.0); MEAN CORPUSCULAR HGB CONC 34.2 g/dl (32.0-36.5); MEAN CORPUSCULAR VOLUME 88.3 fl (80.0-96.0); MONO # 0.7 10^3/uL (0.0-0.8); NEUTROPHILS # 4.4 10^3/uL (1.8-7.7); NEUTROPHILS % 66.5 % (36.0-66.0); PLATELET COUNT, AUTOMATED 185 10^3/uL (150-450); WHITE BLOOD COUNT 6.6 10^3/uL (4.0-10.0)
[2018-03-20 10:18] LABS: ALT/SGPT 26 U/L (12-78); BLOOD UREA NITROGEN 15 MG/DL (7-18); CARBON DIOXIDE LEVEL 32 MEQ/L (21-32); CHLORIDE LEVEL 103 MEQ/L (98-107); CREATININE FOR GFR 0.79 MG/DL (0.55-1.30); GLOMERULAR FILTRATION RATE > 60.0 (>45); GLUCOSE, FASTING 95 MG/DL (70-100); POTASSIUM SERUM 4.4 MEQ/L (3.5-5.1); SODIUM LEVEL 141 MEQ/L (136-145)
[2018-03-20 10:19] LABS: ALBUMIN 3.3 GM/DL (3.2-5.2); BILIRUBIN,TOTAL 0.5 MG/DL (0.2-1.0); CHOLESTEROL LEVEL 263 MG/DL (<200); CHOLESTEROL RISK RATIO 4.457 (<5); HDL CHOLESTEROL 59 MG/DL (>40); LDL CHOLESTEROL 154 MG/DL (<100); NON-HDL-C 204 MG/DL; TOTAL PROTEIN 6.1 GM/DL (6.4-8.2); TRIGLYCERIDES LEVEL 252 MG/DL (<150)
[2018-03-20 10:31] LABS: TOTAL 25(OH) VITAMIN D 18.3 NG/ML (30.0-100.0)
== END ==
LOC: M SFHCPLAZ 07:56
PROVIDERS: ATTEND Nurse Practitioner Family
DX: J44.1 Chronic obstructive pulmonary disease with (acute) exacerbation (principal); E78.2 Mixed hyperlipidemia; E03.9 Hypothyroidism, unspecified; E55.9 Vitamin D deficiency, unspecified

== ENCOUNTER → 2018-03-20 | Outpatient (CLI) | payer OTHER ==
--- NOTE | 2018-03-21 04:02 | REP ---
Clinical: COPD exacerbation. Technique: PA and lateral. Comparison: 02/21/2018. Findings: Mediastinum and cardiac silhouette are normal. Lung medina demonstrate chronic-appearing interstitial changes without acute consolidation, effusion, or pneumothorax. Skeletal structures intact. Impression: Chronic stable changes. No acute cardiopulmonary process. Electronically Signed by Bay Valero MD 03/21/2018 03:53 A
== END ==
LOC: M SMT 08:19
PROVIDERS: ATTEND Nurse Practitioner Family
DX: J44.1 Chronic obstructive pulmonary disease with (acute) exacerbation (principal)

== ENCOUNTER → 2018-04-09 | Outpatient (CLI) | payer OTHER ==
[~2018-04-09] MED LIST changes: +SYNT100T PO
== END ==
LOC: M RAD 08:17
PROVIDERS: ATTEND Internal Medicine Medical Oncology
DX: R16.1 Splenomegaly, not elsewhere classified (principal)

== ENCOUNTER → 2018-04-09 | Outpatient (CLI) | payer OTHER ==
--- NOTE | 2018-04-09 10:22 | REP ---
Clinical: History of splenomegaly and hepatic steatosis. Technique: Real time vital scale and color Doppler evaluation using curved array transducer. Findings: The liver is increased echogenicity consistent with a history of fatty infiltration. No focal hepatic lesion identified. Liver measures 16.9 cm craniocaudal length. Doppler interrogation of the hepatic vasculature demonstrates normal wave patterns, velocities, and flow direction. Main portal vein measures 6.8 mm diameter. The spleen is enlarged measuring 16.9 x 6.9 x 7.2 cm without splenic lesion identified. The pancreas is incompletely evaluated due to interposed bowel gas but visualized portions appear normal. The patient is noted to be status post cholecystectomy. No biliary ductal dilatation is appreciated and the common bile duct measures 3.2 mm diameter. The bilateral kidneys are normal in reniform shape without hydronephrosis. Right kidney measures 10.3 x 3.9 x 4.3 cm. Left kidney measures 11.9 x 4.4 x 3.5 cm. Abdominal aorta is normal in appearance and measures 2.7 cm maximal diameter. No ascites. Splenic vein demonstrates normal wave pattern and flow direction with increased velocity at the hilum at 69.6 cm/sec which may be secondary to the splenomegaly. Main portal vein PSV 27.4 cm/sec Left portal vein PSV 14.4 cm/sec Right portal vein PSV 13.7 cm/sec Impression: 1. Hepatic steatosis without focal hepatic lesion identified. 2. Splenomegaly without focal splenic lesion identified. Electronically Signed by Bay Valero MD 04/09/2018 10:14 A
== END ==
LOC: M RAD 08:20
PROVIDERS: ATTEND Internal Medicine Gastroenterology
DX: E66.9 Obesity, unspecified (principal)

== ENCOUNTER → 2018-06-12 | Outpatient (REF) | payer OTHER ==
[2018-06-12 12:14] LABS: ALBUMIN 3.5 GM/DL (3.2-5.2); ALT/SGPT 22 U/L (12-78); BILIRUBIN,TOTAL 0.5 MG/DL (0.2-1.0); BLOOD UREA NITROGEN 17 MG/DL (7-18); CALCIUM LEVEL 9.1 MG/DL (8.8-10.2); CARBON DIOXIDE LEVEL 32 MEQ/L (21-32); CHLORIDE LEVEL 103 MEQ/L (98-107); CREATININE FOR GFR 0.79 MG/DL (0.55-1.30); FREE T4 1.09 NG/DL (0.76-1.46); GLOMERULAR FILTRATION RATE > 60.0 (>45); GLUCOSE, FASTING 118 MG/DL (70-100); SODIUM LEVEL 140 MEQ/L (136-145); TOTAL 25(OH) VITAMIN D 29.3 NG/ML (30.0-100.0); TOTAL PROTEIN 7.3 GM/DL (6.4-8.2)
== END ==
LOC: M SFHCPLAZ 09:54
PROVIDERS: ATTEND Nurse Practitioner Family
DX: I10 Essential (primary) hypertension (principal); E03.9 Hypothyroidism, unspecified; E55.9 Vitamin D deficiency, unspecified

== ENCOUNTER → 2018-09-16 | Outpatient (REF) | payer OTHER ==
[2018-09-16 10:28] LABS: BLOOD UREA NITROGEN 13 MG/DL (7-18); CALCIUM LEVEL 9.2 MG/DL (8.8-10.2); CARBON DIOXIDE LEVEL 31 MEQ/L (21-32); CHLORIDE LEVEL 107 MEQ/L (98-107); CREATININE FOR GFR 0.76 MG/DL (0.55-1.30); FREE T4 0.91 NG/DL (0.76-1.46); GLOMERULAR FILTRATION RATE > 60.0 (>45); GLUCOSE, FASTING 89 MG/DL (70-100); POTASSIUM SERUM 4.4 MEQ/L (3.5-5.1); SODIUM LEVEL 142 MEQ/L (136-145)
[2018-09-16 12:09] LABS: TOTAL 25(OH) VITAMIN D 26.2 NG/ML (30.0-100.0)
== END ==
LOC: M SFHCPLAZ 08:04
PROVIDERS: ATTEND Nurse Practitioner Family
DX: E03.9 Hypothyroidism, unspecified (principal); I10 Essential (primary) hypertension; E55.9 Vitamin D deficiency, unspecified

== ENCOUNTER → 2018-12-02 | Outpatient (CLI) | payer OTHER ==
--- NOTE | 2018-12-02 11:29 | REP ---
LIVER/SPLEEN SCAN: Following the intravenous administration of 6.6 millicuries technetium 99m sulfur colloid, multiple images of the upper abdomen performed in multiple projections. The liver measures approximately 17 cm in length compatible with mild hepatomegaly. No filling defect is seen. The spleen is enlarged with a length of approximately 17.5 cm. Mild activity is seen in the bone marrow compatible with mild hepatic dysfunction. IMPRESSION: Mild hepatomegaly. Moderate splenomegaly. Mild colloid shift compatible with mild hepatic dysfunction. Electronically Signed by Terrence Tierney MD 12/03/2018 05:32 P
== END ==
LOC: M RAD 09:46
PROVIDERS: ATTEND Internal Medicine Hematology & Oncology
DX: R16.2 Hepatomegaly with splenomegaly, not elsewhere classified (principal); K76.6 Portal hypertension
CPT/HCPCS: 78215; A9541

== ENCOUNTER → 2018-12-11 | Outpatient (REF) | payer OTHER ==
[2018-12-11 11:32] LABS: ALBUMIN 3.5 GM/DL (3.2-5.2); ALT/SGPT 20 U/L (12-78); BILIRUBIN,TOTAL 0.4 MG/DL (0.2-1.0); BLOOD UREA NITROGEN 19 MG/DL (7-18); CALCIUM LEVEL 8.9 MG/DL (8.8-10.2); CARBON DIOXIDE LEVEL 32 MEQ/L (21-32); CHLORIDE LEVEL 103 MEQ/L (98-107); CREATININE FOR GFR 0.76 MG/DL (0.55-1.30); FREE T4 1.06 NG/DL (0.76-1.46); GLOMERULAR FILTRATION RATE > 60.0 (>45); GLUCOSE, FASTING 94 MG/DL (70-100); POTASSIUM SERUM 4.3 MEQ/L (3.5-5.1); SODIUM LEVEL 140 MEQ/L (136-145); TOTAL 25(OH) VITAMIN D 45.7 NG/ML (30.0-100.0); TOTAL PROTEIN 6.4 GM/DL (6.4-8.2)
== END ==
LOC: M SFHCPLAZ 08:17
PROVIDERS: ATTEND Nurse Practitioner Family
DX: I10 Essential (primary) hypertension (principal); E03.9 Hypothyroidism, unspecified; E55.9 Vitamin D deficiency, unspecified

== ENCOUNTER → 2019-01-01 | Outpatient (CLI) | payer OTHER ==
[2019-01-01 07:01] LABS: BLOOD UREA NITROGEN 16 MG/DL (7-18); CREATININE FOR GFR 0.96 MG/DL (0.55-1.30); GLOMERULAR FILTRATION RATE > 60.0 (>45)
== END ==
LOC: M LAB 06:19
PROVIDERS: ATTEND Physician Assistant Medical
DX: M23.222 Derangement of posterior horn of medial meniscus due to old tear or injury, left knee (principal); M23.612 Other spontaneous disruption of anterior cruciate ligament of left knee

== ENCOUNTER → 2019-02-26 | Outpatient (CLI) | payer OTHER ==
--- NOTE | 2019-02-26 16:45 | REPMRS ---
Patient History The patient states she had a clinical breast exam in 02/2019. Patient is postmenopausal. Family history of colorectal cancer under age 50 in maternal cousin. No Hormone Replacement Therapy Digital Woman Screen Mammo: February 26, 2019 - Exam #: [id number] Bilateral CC and MLO view(s) were taken. Technologist: Vanessa Carl, Technologist Prior study comparison: January 08, 2018, bilateral digital woman screen mammo performed at [facility]. December 18, 2016, digital woman screen mammo performed at [facility]. December 16, 2015, digital woman screen mammo performed at [facility]. FINDINGS: There are scattered fibroglandular densities. There has been no change in the appearance of the mammogram from the prior studies. There is a mild amount of scattered fibroglandular density which is fairly symmetric. There is no interval development of dominant mass, architectural distortion, or grouped microcalcification suggestive of malignancy. 3-D tomosynthesis shows no additional findings. Assessment: BI-RADS/ACR category 1 mammogram. Negative Mammogram. Recommendation Routine screening mammogram of both breasts in 1 year (for women over age 40). This patient's Lifetime Breast Cancer Risk is estimated at 5.2 %. This mammogram was interpreted with the aid of an FDA-approved computer-aided dectection system. Electronically Signed By: Tanner Dyer MD 02/26/19 [id number]
== END ==
LOC: M WHC 13:54
PROVIDERS: ATTEND Nurse Practitioner Family
DX: Z12.31 Encounter for screening mammogram for malignant neoplasm of breast (principal); Z78.0 Asymptomatic menopausal state

== ENCOUNTER → 2019-03-05 | Outpatient (CLI) | payer OTHER ==
[2019-03-05 07:57] LABS: ALBUMIN 3.6 GM/DL (3.2-5.2); ALT/SGPT 20 U/L (12-78); BILIRUBIN,TOTAL 0.4 MG/DL (0.2-1.0); BLOOD UREA NITROGEN 16 MG/DL (7-18); CALCIUM LEVEL 9.4 MG/DL (8.8-10.2); CARBON DIOXIDE LEVEL 31 MEQ/L (21-32); CHLORIDE LEVEL 105 MEQ/L (98-107); CHOLESTEROL LEVEL 209 MG/DL (<200); CHOLESTEROL RISK RATIO 4.019 (<5); CREATININE FOR GFR 0.71 MG/DL (0.55-1.30); FREE T4 1.14 NG/DL (0.76-1.46); GLOMERULAR FILTRATION RATE > 60.0 (>45); GLUCOSE, FASTING 87 MG/DL (70-100); HDL CHOLESTEROL 52 MG/DL (>40); LDL CHOLESTEROL 125 MG/DL (<100); NON-HDL-C 157 MG/DL; SODIUM LEVEL 142 MEQ/L (136-145); TOTAL PROTEIN 6.4 GM/DL (6.4-8.2); TRIGLYCERIDES LEVEL 160 MG/DL (<150)
[2019-03-05 07:58] LABS: MALB URINE SIEMENS 9.2 MG/L; MAU/CREAT RATIO 8.8 MCG/MG (0.0-30.0)
[2019-03-05 10:27] LABS: TOTAL 25(OH) VITAMIN D 39.2 NG/ML (30.0-100.0)
== END ==
LOC: M LAB 06:07
PROVIDERS: ATTEND Nurse Practitioner Family
DX: E78.2 Mixed hyperlipidemia (principal); I10 Essential (primary) hypertension; E55.9 Vitamin D deficiency, unspecified; E03.9 Hypothyroidism, unspecified

== ENCOUNTER 2019-04-09 12:15 | Day surgery (SDC) | payer OTHER ==
[~2019-04-09] VITALS: Ht 152.4 cm; Wt 87.7 kg
[~2019-04-09 12:15] MED LIST changes: +LIDOCAINE 1% MDV 20ML VIAL SQ PRN; +LR 1,000 ML IV ONE
[2019-04-09] MEDS ORDERED: ePHEDrine SULFATE 25 MG/5 ML(5MG/ML) SYRINGE ONE (12:16)
[2019-04-09] MEDS ORDERED: ceFAZolin 2 GM/D5W 50 ML IV BAG (J0690 PER 500MG) As Ordered ONE (12:27)
[2019-04-09] MEDS ORDERED: ceFAZolin SOD 2 GM in IV 1 EA IV ONE (12:30)
[2019-04-09] MEDS ORDERED: TRIAMCINOLONE ACETONIDE SUSP 40 MG/ML VIAL (J3301) As Ordered ONE (12:49)
[2019-04-09] MEDS ORDERED: ARNU1INH IN (12:49)
[2019-04-09] MEDS ORDERED: ROPIvacaine 0.5% 30 ML INJECTION (J2795 PER 1MG) As Ordered ONE (12:49)
[2019-04-09] MEDS ORDERED: CHLOROPROCAINE 2 % INJ PRES.FREE 20 ML VIAL (J2400) As Ordered ONE (14:24)
[2019-04-09] MEDS ORDERED: LIDOCAINE 2% INJ 100 MG/5 ML SDV (FOR ANES.) As Ordered ONE (14:24)
[2019-04-09] MEDS ORDERED: MIDAZOLAM INJ 2 MG/2 ML VIAL (J2250) As Ordered ONE (14:24)
[2019-04-09] MEDS ORDERED: fentaNYL 100 MCG/2 ML INJECTION (J3010) As Ordered ONE (14:24)
[2019-04-09] MEDS ORDERED: propofoL 200 MG/20 ML VIAL As Ordered ONE (14:24)
[2019-04-09] MEDS: ePHEDrine SULFATE 25 MG/5 ML(5MG/ML) SYRINGE IV PRN ×3 (15:10→15:31)
[2019-04-09] MEDS ORDERED: LR 1,000 ML IV SCH ×2 (15:15→16:16)
[2019-04-09] MEDS ORDERED: METOCLOPRAMIDE INJ 10MG/2ML VIAL (J2765) IV PRN (15:15)
[2019-04-09] MEDS ORDERED: oxyCODONE 5MG TAB PO PRN (15:15)
[2019-04-09] MEDS ORDERED: fentaNYL 100 MCG/2 ML INJECTION (J3010) IV PRN (15:15)
[2019-04-09] MEDS ORDERED: ONDANSETRON 4MG/2ML VIAL (J2405) IV PRN (15:15)
[2019-04-09] MEDS ORDERED: LACTATED RINGER'S 1000 ML IV ONE (16:00)
[2019-04-09] MEDS ORDERED: ACETAMINOPH W/CODEINE #3 TAB UD PO PRN ×2 (16:16)
[2019-04-09] MEDS ORDERED: MORPHINE 2 MG/ML 1ML VIAL (J2270) IV PRN (16:16)
[2019-04-09 16:30] VITALS: BP 133/73
--- NOTE | 2019-04-10 10:20 | RO ---
DATE OF PROCEDURE: 04/09/2019 PREOPERATIVE DIAGNOSIS: Left knee osteoarthritis and medial lateral meniscus tear. POSTOPERATIVE DIAGNOSIS: Left knee osteoarthritis and medial lateral meniscus tear. PROCEDURE: Left knee operative arthroscopy, partial medial and lateral meniscectomy, joint debridement. SURGEON: Dr. Johnson Beckham ANESTHESIA: Spinal. ESTIMATED BLOOD LOSS: Less than 2. COMPLICATIONS: None. INDICATION: 64-year-old woman with gradually worsening knee pain. MRI scan was consistent with meniscus tears and some arthritis. She wished to go ahead with an arthroscopic evaluation with hopes of reducing her symptoms. She understood the nature of this, the risks of bleeding, infection, damage to nerves, vessels, persistent pain, blood clots, and medical problems. The patient was taken to the operating room and placed in supine position after spinal anesthesia was induced. Left lower extremity was prepped and draped in usual sterile fashion. A time-out was performed. Tourniquet was inflated I then created inferomedial/inferolateral portals per routine. I identified patellofemoral joint which had some moderate arthritic change. I proceeded down both gutters, I identified the medial compartment, there was a complex posterior medial meniscus tear that was resected with combination of basket punch a 4.2 shaver back to a stable rim. There was some grade 2 to 3 changes on the medial femoral condyle was some loose flaps that were carefully smoothed off. I reprobed the meniscus and made sure it was stable. I proceeded to the notch, but the ACL had some fraying, but largely appeared to be intact. I did debride some of the synovitis around this notch. I then proceed to the lateral compartment, there was a mid body to anterior horn lateral meniscus tear, but there was a flap that was resected with a shaver back to a stable rim. The lateral compartment had some moderate arthritic change involving the tibial plateau primarily. I then reexamined the entire joint, irrigated copiously, removed the instrumentation, closed the portals with 3-0 nylon suture and a sterile dressing was applied. Tourniquet was deflated. She was taken to the recovery room in stable condition. There were no known complications. Plan will be routine postop. I did discuss this with anesthesia whether they felt she needed overnight stay for her sleep apnea and they were going to assess that further in recovery room.
== END 2019-04-09 16:35 | disposition home or self-care (01) ==
LOC: M SDC 12:15
PROVIDERS: ATTEND Orthopaedic Surgery
DX: M17.12 Unilateral primary osteoarthritis, left knee (principal); M23.262 Derangement of other lateral meniscus due to old tear or injury, left knee; K21.9 Gastro-esophageal reflux disease without esophagitis; E78.2 Mixed hyperlipidemia; K57.92 Diverticulitis of intestine, part unspecified, without perforation or abscess without bleeding; F32.9 Major depressive disorder, single episode, unspecified; E55.9 Vitamin D deficiency, unspecified; J44.9 Chronic obstructive pulmonary disease, unspecified; E03.9 Hypothyroidism, unspecified; Z79.899 Other long term (current) drug therapy; F17.218 Nicotine dependence, cigarettes, with other nicotine-induced disorders
CPT/HCPCS: 29880; J0690; J2250; J2400; J2405; J2795; J3010; J3301

== ENCOUNTER → 2019-04-15 | Outpatient (CLI) | payer OTHER ==
[~2019-04-15] MED LIST changes: +ARNU1INH IN; -LIDOCAINE 1% MDV 20ML VIAL SQ PRN; -LR 1,000 ML IV ONE
== END ==
LOC: M SLEEP HO 11:38
PROVIDERS: ATTEND Internal Medicine Pulmonary Disease
DX: G47.30 Sleep apnea, unspecified (principal)

== ENCOUNTER → 2019-05-19 | Outpatient (CLI) | payer OTHER ==
--- NOTE | 2019-05-19 17:36 | REP ---
HISTORY: Followup atelectasis. COMPARISON: The latest prior is 02/22/2018. All other priors have also been reviewed at this time. As per the protocol only lung window images were sent to the read station for interpretation. Patient also has a history of tobacco abuse. Areas of subsegmental atelectasis seen on the prior exam have resolved. There are no new nodules. Seen in the anterior segment of the left upper lobe, there is a very subtle 1.3 cm sized ground glass opacity. This represents a change. Grossly the mediastinum and pulmonary aundrea are unchanged. Grossly the imaged upper abdomen and imaged osseous structures are unchanged. IMPRESSION: 1. No new pulmonary nodules. 2. Very subtle ground glass opacity seen in the anterior segment of the left upper lobe as described above and likely secondary to subsegmental atelectatic change, however, I would recommend a 3 month followup according to the revised Philippe Society criteria. Electronically Signed by Orion Quinn DO 05/20/2019 07:35 A
== END ==
LOC: M RAD 15:58
PROVIDERS: ATTEND Internal Medicine Pulmonary Disease
DX: F17.218 Nicotine dependence, cigarettes, with other nicotine-induced disorders (principal)

== ENCOUNTER → 2019-06-10 | Outpatient (CLI) | payer OTHER | LOC: M SLEEP 20:00 | PROVIDERS: ATTEND Internal Medicine Pulmonary Disease | DX: G47.33 Obstructive sleep apnea (adult) (pediatric) (principal) ==

== ENCOUNTER → 2019-10-13 | Outpatient (CLI) | payer OTHER ==
--- NOTE | 2019-11-10 09:21 | REP ---
NONCONTRAST CHEST CT CLINICAL: Follow-up abnormal lung findings. COMPARISON: 05/19/2019. TECHNIQUE: Axial noncontrast images from the thoracic inlet to the upper abdomen with coronal and sagittal reformations. FINDINGS: The bilateral lung medina are well aerated and essentially clear. Minimal bibasilar chronic fibroatelectatic changes (right greater than left) again noted. The recently identified 1.3 cm nonsolid ground-glass opacity in the anterior left upper lobe has resolved and likely represented small subsegmental atelectasis. No consolidation. No nodules or mass. No pleural effusion. No pneumothorax. Tracheobronchial tree is patent. No significant adenopathy. Mediastinum demonstrates relatively normal thoracic aorta, pulmonary vasculature, and heart/pericardium. Surrounding musculoskeletal structures are intact. IMPRESSION: * Essentially normal stable chest CT. No new acute mediastinal or pleural parenchymal process. * Previously noted 1.3 cm opacity in the left upper lobe has resolved and likely represented subsegmental atelectasis. MTDD
== END ==
LOC: M RAD 09:21
PROVIDERS: ATTEND Nurse Practitioner Family
DX: Z87.09 Personal history of other diseases of the respiratory system (principal)

== ENCOUNTER → 2019-10-17 | Outpatient (CLI) | payer OTHER ==
[2019-10-17 08:25] LABS: BLOOD UREA NITROGEN 16 MG/DL (7-18); CALCIUM LEVEL 9.6 MG/DL (8.8-10.2); CARBON DIOXIDE LEVEL 32 MEQ/L (21-32); CHLORIDE LEVEL 103 MEQ/L (98-107); FREE T4 1.12 NG/DL (0.76-1.46); GLOMERULAR FILTRATION RATE > 60.0 (>45); GLUCOSE, FASTING 89 MG/DL (70-100); POTASSIUM SERUM 3.5 MEQ/L (3.5-5.1); SODIUM LEVEL 142 MEQ/L (136-145)
[2019-10-17 10:22] LABS: TOTAL 25(OH) VITAMIN D 24.2 NG/ML (30.0-100.0)
== END ==
LOC: M LAB 06:39
PROVIDERS: ATTEND Nurse Practitioner Family
DX: E03.9 Hypothyroidism, unspecified (principal); I10 Essential (primary) hypertension; E55.9 Vitamin D deficiency, unspecified

== ENCOUNTER → 2020-03-18 | Outpatient (CLI) | payer OTHER ==
[~2020-03-18] MED LIST changes: +D31000TA2 PO; +HYDR-3490 PO; -HYDR25TAB PO; +VITA50005 PO
== END ==
LOC: M LABSMTC 10:54
PROVIDERS: ATTEND Anesthesiology
DX: Z01.812 Encounter for preprocedural laboratory examination (principal); Z20.822 Contact with and (suspected) exposure to COVID-19

== ENCOUNTER 2020-03-23 11:14 | Day surgery (SDC) | payer OTHER ==
[~2020-03-23] VITALS: Ht 152.4 cm; Wt 88.9 kg
[~2020-03-23 11:14] MED LIST changes: +LIDOCAINE 2% 100MG/5ML SDV (FOR ANES.) As Ordered ONE; +NS 1,000 ML IV ONE; +fentaNYL 100 MCG/2 ML INJECTION (J3010) As Ordered ONE; +propofoL 500 MG/50 ML VIAL As Ordered ONE
--- NOTE | 2020-03-23 12:25 | ROOR ---
Patient Name: Digna Duque Procedure Date: 03/23/2020 12:11 PM Date of : 1955 Age: 65 Room: [facility] Gender: Female Note Status: Finalized Procedure: Upper GI endoscopy Indications: Suspected gastro-esophageal reflux disease Providers: Lamin Moreno MD Referring MD: Ev Gaytan NP Requesting Provider: Medicines: Monitored Anesthesia Care Complications: No immediate complications. Procedure: Pre-Anesthesia Assessment: - Prior to the procedure, a History and Physical was performed, and patient medications and allergies were reviewed. The patient is competent. The risks and benefits of the procedure and the sedation options and risks were discussed with the patient. All questions were answered and informed consent was obtained. Patient identification and proposed procedure were verified by the physician, the nurse and the anesthesiologist in the procedure room. Mental Status Examination: alert and oriented. Airway Examination: normal oropharyngeal airway and neck mobility. Respiratory Examination: clear to auscultation. CV Examination: normal. Prophylactic Antibiotics: The patient does not require prophylactic antibiotics. Prior Anticoagulants: The patient has taken no previous anticoagulant or antiplatelet agents. ASA Grade Assessment: II - A patient with mild systemic disease. After reviewing the risks and benefits, the patient was deemed in satisfactory condition to undergo the procedure. The anesthesia plan was to use monitored anesthesia care (MAC). Immediately prior to administration of medications, the patient was re-assessed for adequacy to receive sedatives. The heart rate, respiratory rate, oxygen saturations, blood pressure, adequacy of pulmonary ventilation, and response to care were monitored throughout the procedure. The physical status of the patient was re-assessed after the procedure. The Endoscope was introduced through the mouth, and advanced to the second part of duodenum. The upper GI endoscopy was accomplished without difficulty. The patient tolerated the procedure well. Findings: The Z-line was regular and was found 38 cm from the incisors. A small hiatal hernia was present. Patchy moderate inflammation characterized by congestion (edema), erythema, friability and granularity was found in the gastric antrum. Biopsies were taken with a cold forceps for Helicobacter pylori testing. Verification of patient identification for the specimen was done by the physician and nurse using the patient's name, date and medical record number. Estimated blood loss was minimal. The duodenal bulb and second portion of the duodenum were normal. Impression: - Z-line regular, 38 cm from the incisors. - Small hiatal hernia. - Gastritis. Biopsied. - Normal duodenal bulb and second portion of the duodenum. Recommendation: - Patient has a contact number available for emergencies. The signs and symptoms of potential delayed complications were discussed with the patient. Return to normal activities tomorrow. Written discharge instructions were provided to the patient. - High fiber diet. - Continue present medications. - Await pathology results. - Follow an antireflux regimen. - Telephone GI clinic for pathology results in 2 weeks. - Return to primary care physician. Procedure Code(s): --- Professional --- 83459, Esophagogastroduodenoscopy, flexible, transoral; with biopsy, single or multiple Diagnosis Code(s): --- Professional --- K44.9, Diaphragmatic hernia without obstruction or gangrene K29.70, Gastritis, unspecified, without bleeding CPT copyright 2019 [employer]. All rights reserved. The codes documented in this report are preliminary and upon folder machine operator review may be revised to meet current compliance requirements. Lamin Moreno MD Lamin Moreno MD 03/23/2020 12:25:23 PM Electronically signed by Lamin Moreno MD Number of Addenda: 0 Note Initiated On: 03/23/2020 12:11 PM Estimated Blood Loss: Estimated blood loss was minimal.
--- NOTE | 2020-03-23 13:01 | ROOR ---
Patient Name: Digna Duque Procedure Date: 03/23/2020 12:12 PM Date of : 1955 Age: 65 Room: [facility] Gender: Female Note Status: Finalized Procedure: Colonoscopy Indications: Screening for colorectal malignant neoplasm Providers: Lamin Moreno MD Referring MD: Ev Gaytan NP Requesting Provider: Medicines: Monitored Anesthesia Care Complications: No immediate complications. Procedure: Pre-Anesthesia Assessment: - Prior to the procedure, a History and Physical was performed, and patient medications and allergies were reviewed. The patient is competent. The risks and benefits of the procedure and the sedation options and risks were discussed with the patient. All questions were answered and informed consent was obtained. Patient identification and proposed procedure were verified by the physician, the nurse and the anesthesiologist in the procedure room. Mental Status Examination: alert and oriented. Airway Examination: normal oropharyngeal airway and neck mobility. Respiratory Examination: clear to auscultation. CV Examination: normal. Prophylactic Antibiotics: The patient does not require prophylactic antibiotics. Prior Anticoagulants: The patient has taken no previous anticoagulant or antiplatelet agents. ASA Grade Assessment: II - A patient with mild systemic disease. After reviewing the risks and benefits, the patient was deemed in satisfactory condition to undergo the procedure. The anesthesia plan was to use monitored anesthesia care (MAC). Immediately prior to administration of medications, the patient was re-assessed for adequacy to receive sedatives. The heart rate, respiratory rate, oxygen saturations, blood pressure, adequacy of pulmonary ventilation, and response to care were monitored throughout the procedure. The physical status of the patient was re-assessed after the procedure. The Colonoscope was introduced through the anus and advanced to the terminal ileum, with identification of the appendiceal orifice and IC valve. The colonoscopy was performed without difficulty. The patient tolerated the procedure well. The quality of the bowel preparation was good. The terminal ileum, ileocecal valve, appendiceal orifice, and rectum were photographed. Scope insertion time was 2 minutes. Scope withdrawal time was 9 minutes. The total duration of the procedure was 12 minutes. Findings: The perianal and digital rectal examinations were normal. The terminal ileum appeared normal. Four sessile polyps were found in the transverse colon and ileocecal valve. The polyps were 6 to 15 mm in size. These polyps were removed with a hot snare. Resection and retrieval were complete. Verification of patient identification for the specimen was done by the physician and nurse using the patient's name, date and medical record number. Estimated blood loss was minimal. A 12 mm polyp was found in the recto-sigmoid colon. The polyp was multi-lobulated and sessile. The polyp was removed with a hot snare. Resection and retrieval were complete. To close a defect after polypectomy, one hemostatic clip was successfully placed. There was no bleeding at the end of the procedure. Multiple small and large-mouthed diverticula were found from sigmoid to transverse colon. There was no evidence of diverticular bleeding. Non-bleeding external and internal hemorrhoids were found during retroflexion. The hemorrhoids were medium-sized. Impression: - The examined portion of the ileum was normal. - Four 6 to 15 mm polyps in the transverse colon and at the ileocecal valve, removed with a hot snare. Resected and retrieved. - One 12 mm polyp at the recto-sigmoid colon, removed with a hot snare. Resected and retrieved. Clip was placed. - Moderate diverticulosis from sigmoid to transverse colon. There was no evidence of diverticular bleeding. - Non-bleeding external and internal hemorrhoids. Recommendation: - Patient has a contact number available for emergencies. The signs and symptoms of potential delayed complications were discussed with the patient. Return to normal activities tomorrow. Written discharge instructions were provided to the patient. - High fiber diet. - Continue present medications. - Use fiber, for example Citrucel, Fibercon, Konsyl or Metamucil. - Await pathology results. - Repeat colonoscopy in 3 years for surveillance based on pathology results. - Telephone GI clinic for pathology results in 2 weeks. - Return to primary care physician. Procedure Code(s): --- Professional --- 62406, Colonoscopy, flexible; with removal of tumor(s), polyp(s), or other lesion(s) by snare technique Diagnosis Code(s): --- Professional --- K63.5, Polyp of colon Z12.11, Encounter for screening for malignant neoplasm of colon K64.8, Other hemorrhoids K57.30, Diverticulosis of large intestine without perforation or abscess without bleeding CPT copyright 2019 [employer]. All rights reserved. The codes documented in this report are preliminary and upon pharmacy general manager review may be revised to meet current compliance requirements. Lamin Moreno MD Lamin Moreno MD 03/23/2020 1:01:47 PM Electronically signed by Lamin Moreno MD Number of Addenda: 0 Note Initiated On: 03/23/2020 12:12 PM Estimated Blood Loss: Estimated blood loss was minimal.
[2020-03-23 13:20] VITALS: BP 155/76
== END 2020-03-23 13:30 | disposition home or self-care (01) ==
LOC: M OPP 11:14
PROVIDERS: ATTEND Internal Medicine Gastroenterology
DX: Z12.11 Encounter for screening for malignant neoplasm of colon (principal); K63.5 Polyp of colon; K64.8 Other hemorrhoids; K57.30 Diverticulosis of large intestine without perforation or abscess without bleeding; K21.9 Gastro-esophageal reflux disease without esophagitis; K29.70 Gastritis, unspecified, without bleeding; K44.9 Diaphragmatic hernia without obstruction or gangrene
CPT/HCPCS: 43239; 45385; 88305; J3010

== ENCOUNTER → 2020-06-05 | Outpatient (CLI) | payer OTHER ==
[~2020-06-05] MED LIST changes: -LIDOCAINE 2% 100MG/5ML SDV (FOR ANES.) As Ordered ONE; -NS 1,000 ML IV ONE; -fentaNYL 100 MCG/2 ML INJECTION (J3010) As Ordered ONE; -propofoL 500 MG/50 ML VIAL As Ordered ONE
[2020-06-05 10:08] LABS: ALBUMIN 3.7 GM/DL (3.2-5.2); ALT/SGPT 25 U/L (12-78); BILIRUBIN,TOTAL 0.4 MG/DL (0.2-1.0); BLOOD UREA NITROGEN 16 MG/DL (7-18); CALCIUM LEVEL 9.3 MG/DL (8.8-10.2); CARBON DIOXIDE LEVEL 34 MEQ/L (21-32); CHLORIDE LEVEL 104 MEQ/L (98-107); CHOLESTEROL LEVEL 226 MG/DL (<200); CREATININE FOR GFR 0.73 MG/DL (0.55-1.30); FREE T4 0.88 NG/DL (0.76-1.46); GLOMERULAR FILTRATION RATE > 60.0 (>45); GLUCOSE, FASTING 95 MG/DL (70-100); HDL CHOLESTEROL 59 MG/DL (>40); LDL CHOLESTEROL 120 MG/DL (<100); NON-HDL-C 167 MG/DL; POTASSIUM SERUM 3.9 MEQ/L (3.5-5.1); SODIUM LEVEL 141 MEQ/L (136-145); TOTAL PROTEIN 6.8 GM/DL (6.4-8.2); TRIGLYCERIDES LEVEL 233 MG/DL (<150)
[2020-06-05 10:10] LABS: MALB URINE SIEMENS 10.3 MG/L; MAU/CREAT RATIO 7.4 MCG/MG (0.0-30.0)
[2020-06-07 07:00] LABS: TOTAL 25(OH) VITAMIN D 18.1 NG/ML (30.0-100.0)
== END ==
LOC: M LAB 08:21
PROVIDERS: ATTEND Nurse Practitioner Family
DX: E78.2 Mixed hyperlipidemia (principal); I10 Essential (primary) hypertension; E55.9 Vitamin D deficiency, unspecified; E03.9 Hypothyroidism, unspecified

== ENCOUNTER → 2020-10-13 | Outpatient (CLI) | payer OTHER ==
[~2020-10-13] MED LIST changes: +ERGO500029 PO; -VITA50005 PO
--- NOTE | 2020-10-13 08:18 | REP ---
INDICATION: HX OF NICOTINE DEPENDENCE COMPARISON: 05/19/2019, 02/22/2018 TECHNIQUE: Axial noncontrast images from the thoracic inlet to the upper abdomen using low-dose lung screening technique (LDCT). FINDINGS: Bilateral lung medina are relatively symmetric and well aerated. There is mildly progressive fibroatelectatic changes at the right base and lingula. Previously noted ground-glass opacity in the anterior segment of the left upper lobe has resolved. No acute consolidation, suspicious nodule or mass. No effusion. No pneumothorax. Tracheobronchial tree is patent. IMPRESSION: Lung-RADS category 1. No suspicious nodule or mass. Management recommendations include annual low-dose CT surveillance. <Electronically signed by Bay Valero > 10/13/20 [id number]
== END ==
LOC: M RAD 07:03
PROVIDERS: ATTEND Nurse Practitioner Family
DX: Z87.891 Personal history of nicotine dependence (principal)

== ENCOUNTER → 2021-01-31 | Outpatient (CLI) | payer OTHER ==
[2021-01-31 11:13] LABS: BLOOD UREA NITROGEN 18 MG/DL (7-18); CALCIUM LEVEL 9.6 MG/DL (8.8-10.2); CARBON DIOXIDE LEVEL 31 MEQ/L (21-32); CHLORIDE LEVEL 106 MEQ/L (98-107); CREATININE FOR GFR 0.65 MG/DL (0.55-1.30); FREE T4 0.95 NG/DL (0.76-1.46); GLOMERULAR FILTRATION RATE > 60.0 (>45); GLUCOSE, FASTING 92 MG/DL (70-100); POTASSIUM SERUM 4.1 MEQ/L (3.5-5.1); SODIUM LEVEL 142 MEQ/L (136-145)
[2021-01-31 11:14] LABS: TOTAL 25(OH) VITAMIN D 21.9 NG/ML (30.0-100.0)
== END ==
LOC: M PLALAB 09:06
PROVIDERS: ATTEND Nurse Practitioner Family
DX: E03.9 Hypothyroidism, unspecified (principal); I10 Essential (primary) hypertension; E55.9 Vitamin D deficiency, unspecified

== ENCOUNTER → 2021-08-02 | Outpatient (CLI) | payer OTHER ==
[~2021-08-02] MED LIST changes: -D31000TA2 PO; +VITA100093 PO
[2021-08-02 14:26] LABS: BASO % 0.5 % (0.0-1.0); EOS # 0.1 10^3/uL (0.0-0.5); EOS % 1.9 % (0.0-3.0); HEMATOCRIT 42.9 % (36.0-47.0); HEMOGLOBIN 14.2 g/dl (12.0-15.5); LYMPH # 1.3 10^3/uL (1.5-5.0); LYMPH % 21.2 % (24.0-44.0); MEAN CORPUSCULAR HGB CONC 33.1 g/dl (32.0-36.5); MEAN CORPUSCULAR VOLUME 90.7 fl (80.0-96.0); MONO # 0.5 10^3/uL (0.0-0.8); MONO % 7.7 % (2.0-8.0); NEUTROPHILS # 4.2 10^3/uL (1.5-8.5); NEUTROPHILS % 67.9 % (36.0-66.0); PLATELET COUNT, AUTOMATED 162 10^3/uL (150-450); RED BLOOD COUNT 4.73 10^6/uL (4.00-5.40); WHITE BLOOD COUNT 6.2 10^3/uL (4.0-10.0)
[2021-08-02 15:30] LABS: HEMOGLOBIN A1c 4.9 %
[2021-08-02 15:47] LABS: ALBUMIN 3.5 GM/DL (3.2-5.2); ALT/SGPT 20 U/L (12-78); BILIRUBIN,TOTAL 0.4 MG/DL (0.2-1.0); BLOOD UREA NITROGEN 13 MG/DL (7-18); CALCIUM LEVEL 8.9 MG/DL (8.8-10.2); CARBON DIOXIDE LEVEL 30 MEQ/L (21-32); CHLORIDE LEVEL 105 MEQ/L (98-107); CHOLESTEROL LEVEL 224 MG/DL (<200); CHOLESTEROL RISK RATIO 4.307 (<5); CREATININE FOR GFR 0.74 MG/DL (0.55-1.30); FREE T4 1.09 NG/DL (0.76-1.46); GLOMERULAR FILTRATION RATE > 60.0 (>45); GLUCOSE, FASTING 86 MG/DL (70-100); HDL CHOLESTEROL 52 MG/DL (>40); LDL CHOLESTEROL 119 MG/DL (<100); NON-HDL-C 172 MG/DL; POTASSIUM SERUM 4.1 MEQ/L (3.5-5.1); SODIUM LEVEL 145 MEQ/L (136-145); TOTAL 25(OH) VITAMIN D 20.2 NG/ML (30.0-100.0); TOTAL PROTEIN 6.6 GM/DL (6.4-8.2); TRIGLYCERIDES LEVEL 265 MG/DL (<150)
== END ==
LOC: M PLALAB 09:56
PROVIDERS: ATTEND Nurse Practitioner Family
DX: E03.9 Hypothyroidism, unspecified (principal); E55.9 Vitamin D deficiency, unspecified; E78.2 Mixed hyperlipidemia; I10 Essential (primary) hypertension

== ENCOUNTER → 2021-08-16 | Outpatient (CLI) | payer OTHER | LOC: M RAD 11:34 | PROVIDERS: ATTEND Internal Medicine Pulmonary Disease | DX: R05.9 Cough, unspecified (principal) ==

== ENCOUNTER → 2021-08-18 | Outpatient (REF) | payer OTHER | LOC: M LAB REF 16:58 | PROVIDERS: ATTEND Nurse Practitioner Family | DX: J44.1 Chronic obstructive pulmonary disease with (acute) exacerbation (principal) ==

== ENCOUNTER → 2021-10-18 | Outpatient (CLI) | payer OTHER | LOC: M WHC 09:50 | PROVIDERS: ATTEND Nurse Practitioner Family | DX: Z12.31 Encounter for screening mammogram for malignant neoplasm of breast (principal); Z13.820 Encounter for screening for osteoporosis; M85.88 Other specified disorders of bone density and structure, other site; M85.851 Other specified disorders of bone density and structure, right thigh; M85.852 Other specified disorders of bone density and structure, left thigh ==

== ENCOUNTER → 2021-11-21 | Outpatient (CLI) | payer OTHER | LOC: M RAD 12:16 | PROVIDERS: ATTEND Nurse Practitioner Family | DX: Z87.891 Personal history of nicotine dependence (principal); J43.9 Emphysema, unspecified ==

== ENCOUNTER → 2022-01-31 | Outpatient (CLI) | payer OTHER ==
[2022-01-31 10:58] LABS: BASO % 0.2 % (0.0-1.0); EOS # 0.1 10^3/uL (0.0-0.5); EOS % 1.6 % (0.0-3.0); HEMATOCRIT 45.3 % (36.0-47.0); HEMOGLOBIN 15.2 g/dl (12.0-15.5); LYMPH # 1.3 10^3/uL (1.5-5.0); LYMPH % 16.3 % (24.0-44.0); MEAN CORPUSCULAR HGB CONC 33.6 g/dl (32.0-36.5); MEAN CORPUSCULAR VOLUME 92.4 fl (80.0-96.0); MONO # 0.7 10^3/uL (0.0-0.8); MONO % 8.3 % (2.0-8.0); NEUTROPHILS # 5.9 10^3/uL (1.5-8.5); NEUTROPHILS % 73.1 % (36.0-66.0); PLATELET COUNT, AUTOMATED 162 10^3/uL (150-450); WHITE BLOOD COUNT 8.1 10^3/uL (4.0-10.0)
[2022-01-31 11:33] LABS: ALBUMIN 3.8 G/DL (3.2-5.2); ALKALINE PHOSPHATASE 126 U/L (46-116); ALT/SGPT 22 U/L (7.0-40); AST/SGOT 19 U/L (<34); BILIRUBIN,TOTAL 0.5 MG/DL (0.3-1.2); BLOOD UREA NITROGEN 21 MG/DL (9-23); CALCIUM LEVEL 10.1 MG/DL (8.3-10.6); CARBON DIOXIDE LEVEL 33 MMOL/L (20-31); CHLORIDE LEVEL 101 MMOL/L (98-107); CHOLESTEROL LEVEL 177 MG/DL (<200); CHOLESTEROL RISK RATIO 2.96 (<5); GLOMERULAR FILTRATION RATE > 60.0 (>45); GLUCOSE, FASTING 96 MG/DL (74-106); HDL CHOLESTEROL 59.6 MG/DL (>40); LDL CHOLESTEROL 68.2 MG/DL (<100); NON-HDL-C 117 MG/DL; POTASSIUM SERUM 4.3 MMOL/L (3.5-5.1); SODIUM LEVEL 140 MMOL/L (136-145); TOTAL PROTEIN 6.7 G/DL (5.7-8.2); TRIGLYCERIDES LEVEL 246 MG/DL (<150)
[2022-01-31 11:34] LABS: TOTAL 25(OH) VITAMIN D 39.9 NG/ML (20.0-100.0)
[2022-01-31 11:35] LABS: FREE T4 1.08 NG/DL (0.89-1.76); THYROID STIMULATING HORMONE 4.894 uIU/ML (0.55-4.78)
== END ==
LOC: M PLALAB 08:15
PROVIDERS: ATTEND Nurse Practitioner Family
DX: E03.9 Hypothyroidism, unspecified (principal); E55.9 Vitamin D deficiency, unspecified; I10 Essential (primary) hypertension; E78.2 Mixed hyperlipidemia

== ENCOUNTER → 2022-07-17 | Outpatient (CLI) | payer OTHER | LOC: M RAD 12:41 | PROVIDERS: ATTEND Nurse Practitioner Family | DX: R91.8 Other nonspecific abnormal finding of lung field (principal); I77.810 Thoracic aortic ectasia; I25.10 Atherosclerotic heart disease of native coronary artery without angina pectoris ==

== ENCOUNTER → 2022-08-01 | Outpatient (CLI) | payer OTHER ==
[2022-08-01 10:40] LABS: BASO % 0.3 % (0.0-1.0); EOS # 0.1 10^3/uL (0.0-0.5); EOS % 2.1 % (0.0-3.0); HEMATOCRIT 42.5 % (36.0-47.0); HEMOGLOBIN 14.1 g/dl (12.0-15.5); LYMPH # 1.3 10^3/uL (1.5-5.0); LYMPH % 19.2 % (24.0-44.0); MEAN CORPUSCULAR HEMOGLOBIN 30.7 pg (27.0-33.0); MEAN CORPUSCULAR HGB CONC 33.2 g/dl (32.0-36.5); MEAN CORPUSCULAR VOLUME 92.6 fl (80.0-96.0); MONO # 0.6 10^3/uL (0.0-0.8); MONO % 8.9 % (2.0-8.0); NEUTROPHILS # 4.6 10^3/uL (1.5-8.5); PLATELET COUNT, AUTOMATED 159 10^3/uL (150-450); RED BLOOD COUNT 4.59 10^6/uL (4.00-5.40); WHITE BLOOD COUNT 6.6 10^3/uL (4.0-10.0)
[2022-08-01 10:48] LABS: HEMOGLOBIN A1c 4.6 % (4.0-6.0)
[2022-08-01 11:03] LABS: ALBUMIN 3.7 G/DL (3.2-5.2); ALKALINE PHOSPHATASE 99 U/L (46-116); ALT/SGPT 18 U/L (7.0-40); AST/SGOT 9 U/L (<34); BILIRUBIN,TOTAL 0.5 MG/DL (0.3-1.2); BLOOD UREA NITROGEN 12 MG/DL (9-23); CALCIUM LEVEL 9.3 MG/DL (8.3-10.6); CARBON DIOXIDE LEVEL 31 MMOL/L (20-31); CHLORIDE LEVEL 104 MMOL/L (98-107); CHOLESTEROL LEVEL 158 MG/DL (<200); CHOLESTEROL RISK RATIO 3.25 (<5); CREATININE FOR GFR 0.75 MG/DL (0.55-1.30); GLOMERULAR FILTRATION RATE > 60.0 (>45); GLUCOSE, FASTING 91 MG/DL (74-106); HDL CHOLESTEROL 48.5 MG/DL (>40); LDL CHOLESTEROL 67.1 MG/DL (<100); NON-HDL-C 109.5 MG/DL; POTASSIUM SERUM 3.8 MMOL/L (3.5-5.1); SODIUM LEVEL 141 MMOL/L (136-145); TOTAL PROTEIN 6.1 G/DL (5.7-8.2); TRIGLYCERIDES LEVEL 212 MG/DL (<150)
[2022-08-01 11:07] LABS: THYROID STIMULATING HORMONE 5.474 uIU/ML (0.55-4.78); TOTAL 25(OH) VITAMIN D 24.9 NG/ML (20.0-100.0)
[2022-08-01 11:09] LABS: FREE T4 0.95 NG/DL (0.89-1.76)
== END ==
LOC: M PLALAB 07:03
PROVIDERS: ATTEND Nurse Practitioner Family
DX: I10 Essential (primary) hypertension (principal)

== ENCOUNTER → 2022-11-01 | Outpatient (CLI) | payer OTHER | LOC: M WHC 12:39 | PROVIDERS: ATTEND Nurse Practitioner Family | DX: Z12.31 Encounter for screening mammogram for malignant neoplasm of breast (principal) ==

== ENCOUNTER → 2023-01-23 | Outpatient (CLI) | payer OTHER ==
[2023-01-23 10:29] LABS: BASO % 0.5 % (0.0-1.0); EOS # 0.1 10^3/uL (0.0-0.5); HEMATOCRIT 42.7 % (36.0-47.0); HEMOGLOBIN 14.3 g/dl (12.0-15.5); LYMPH % 17.3 % (24.0-44.0); MEAN CORPUSCULAR HEMOGLOBIN 31.6 pg (27.0-33.0); MEAN CORPUSCULAR HGB CONC 33.5 g/dl (32.0-36.5); MEAN CORPUSCULAR VOLUME 94.3 fl (80.0-96.0); MONO # 0.5 10^3/uL (0.0-0.8); MONO % 8.3 % (2.0-8.0); NEUTROPHILS # 4.3 10^3/uL (1.5-8.5); NEUTROPHILS % 71.6 % (36.0-66.0); PLATELET COUNT, AUTOMATED 147 10^3/uL (150-450); RED BLOOD COUNT 4.53 10^6/uL (4.00-5.40)
[2023-01-23 11:23] LABS: ALBUMIN 3.5 G/DL (3.2-5.2); ALKALINE PHOSPHATASE 94 U/L (46-116); ALT/SGPT 13 U/L (7.0-40); AST/SGOT 9 U/L (<34); BILIRUBIN,TOTAL 0.4 MG/DL (0.3-1.2); BLOOD UREA NITROGEN 15 MG/DL (9-23); CALCIUM LEVEL 9.9 MG/DL (8.3-10.6); CARBON DIOXIDE LEVEL 32 MMOL/L (20-31); CHLORIDE LEVEL 105 MMOL/L (98-107); CREATININE FOR GFR 0.61 MG/DL (0.55-1.30); FREE T4 0.99 NG/DL (0.89-1.76); GLOMERULAR FILTRATION RATE > 60.0 (>45); GLUCOSE, FASTING 98 MG/DL (74-106); POTASSIUM SERUM 3.9 MMOL/L (3.5-5.1); SODIUM LEVEL 141 MMOL/L (136-145); THYROID STIMULATING HORMONE 4.968 uIU/ML (0.55-4.78); TOTAL PROTEIN 6.3 G/DL (5.7-8.2); TRIGLYCERIDES LEVEL 227 MG/DL (<150)
[2023-01-23 11:36] LABS: CHOLESTEROL LEVEL 168 MG/DL (<200); CHOLESTEROL RISK RATIO 3.11 (<5); LDL CHOLESTEROL 68.6 MG/DL (<100)
== END ==
LOC: M PLALAB 08:12
PROVIDERS: ATTEND Nurse Practitioner Family
DX: E03.9 Hypothyroidism, unspecified (principal); E78.2 Mixed hyperlipidemia; E55.9 Vitamin D deficiency, unspecified; I10 Essential (primary) hypertension

== ENCOUNTER → 2023-03-13 | Outpatient (CLI) | payer OTHER | LOC: M RAD 08:06 | PROVIDERS: ATTEND Nurse Practitioner Family | DX: R91.8 Other nonspecific abnormal finding of lung field (principal) ==

== ENCOUNTER → 2023-03-13 | Outpatient (CLI) | payer OTHER ==
[2023-03-13 09:16] LABS: THYROID STIMULATING HORMONE 4.564 uIU/ML (0.55-4.78)
[2023-03-13 09:17] LABS: FREE T4 1.04 NG/DL (0.89-1.76)
== END ==
LOC: M LAB 08:09
PROVIDERS: ATTEND Nurse Practitioner Family
DX: E03.9 Hypothyroidism, unspecified (principal)

== ENCOUNTER 2023-07-03 11:56 | Day surgery (SDC) | payer OTHER ==
[~2023-07-03] VITALS: Ht 152.4 cm; Wt 83.9 kg
[~2023-07-03 11:56] MED LIST changes: +VENTAER INH
[2023-07-03] MEDS: NS 1,000 ML IV ONE (12:41)
[2023-07-03] MEDS ORDERED: propofoL 200 MG/20 ML VIAL As Ordered ONE (13:16)
[2023-07-03] MEDS ORDERED: propofoL 500 MG/50 ML VIAL As Ordered ONE (13:16)
[2023-07-03] MEDS ORDERED: LIDOCAINE 2% 100MG/5ML SDV (FOR ANES.) As Ordered ONE (13:16)
[2023-07-03 14:54] VITALS: BP 147/77; TEMP 97.9; O2SAT 93
== END 2023-07-03 14:55 | disposition home or self-care (01) ==
LOC: M OPP 11:56
PROVIDERS: ATTEND Internal Medicine Gastroenterology
DX: Z12.11 Encounter for screening for malignant neoplasm of colon (principal); D12.4 Benign neoplasm of descending colon; D12.3 Benign neoplasm of transverse colon; K57.30 Diverticulosis of large intestine without perforation or abscess without bleeding; K64.8 Other hemorrhoids; K64.4 Residual hemorrhoidal skin tags; Z86.010 Personal history of colon polyps; E03.9 Hypothyroidism, unspecified; E78.00 Pure hypercholesterolemia, unspecified; K76.0 Fatty (change of) liver, not elsewhere classified; J44.9 Chronic obstructive pulmonary disease, unspecified; G47.30 Sleep apnea, unspecified; Z79.899 Other long term (current) drug therapy; Z79.51 Long term (current) use of inhaled steroids; F17.210 Nicotine dependence, cigarettes, uncomplicated; Z90.49 Acquired absence of other specified parts of digestive tract

== ENCOUNTER → 2023-07-19 | Outpatient (CLI) | payer OTHER ==
[2023-07-19 15:12] LABS: BASO % 0.7 % (0.0-1.0); EOS # 0.2 10^3/uL (0.0-0.5); EOS % 2.5 % (0.0-3.0); HEMATOCRIT 43.4 % (36.0-47.0); HEMOGLOBIN 14.2 g/dl (12.0-15.5); LYMPH # 1.2 10^3/uL (1.5-5.0); MEAN CORPUSCULAR HEMOGLOBIN 30.9 pg (27.0-33.0); MEAN CORPUSCULAR HGB CONC 32.7 g/dl (32.0-36.5); MEAN CORPUSCULAR VOLUME 94.3 fl (80.0-96.0); MONO # 0.5 10^3/uL (0.0-0.8); MONO % 7.6 % (2.0-8.0); NEUTROPHILS # 4.1 10^3/uL (1.5-8.5); NEUTROPHILS % 68.9 % (36.0-66.0); PLATELET COUNT, AUTOMATED 153 10^3/uL (150-450); WHITE BLOOD COUNT 5.9 10^3/uL (4.0-10.0)
[2023-07-19 15:36] LABS: TOTAL 25(OH) VITAMIN D 30.4 NG/ML (20.0-100.0)
[2023-07-19 15:37] LABS: THYROID STIMULATING HORMONE 3.701 uIU/ML (0.55-4.78)
[2023-07-19 15:39] LABS: ALBUMIN 3.4 G/DL (3.2-5.2); ALKALINE PHOSPHATASE 97 U/L (46-116); ALT/SGPT 11 U/L (7.0-40); AST/SGOT < 8 U/L (<34); BILIRUBIN,TOTAL 0.4 MG/DL (0.3-1.2); BLOOD UREA NITROGEN 13 MG/DL (9-23); CALCIUM LEVEL 9.9 MG/DL (8.3-10.6); CARBON DIOXIDE LEVEL 33 MMOL/L (20-31); CHLORIDE LEVEL 106 MMOL/L (98-107); CHOLESTEROL LEVEL 148 MG/DL (<200); CREATININE FOR GFR 0.67 MG/DL (0.55-1.30); FREE T4 0.94 NG/DL (0.89-1.76); GLOMERULAR FILTRATION RATE > 60.0 (>45); GLUCOSE, FASTING 98 MG/DL (74-106); HDL CHOLESTEROL 50.9 MG/DL (>40); LDL CHOLESTEROL 63.9 MG/DL (<100); NON-HDL-C 97.1 MG/DL; POTASSIUM SERUM 4.1 MMOL/L (3.5-5.1); SODIUM LEVEL 141 MMOL/L (136-145); TOTAL PROTEIN 6.2 G/DL (5.7-8.2); TRIGLYCERIDES LEVEL 166 MG/DL (<150)
== END ==
LOC: M PLALAB 08:58
PROVIDERS: ATTEND Nurse Practitioner Family
DX: E03.9 Hypothyroidism, unspecified (principal); E55.9 Vitamin D deficiency, unspecified; E78.2 Mixed hyperlipidemia; I10 Essential (primary) hypertension

== ENCOUNTER → 2023-10-16 | Outpatient (CLI) | payer OTHER | LOC: M RAD 08:08 | PROVIDERS: ATTEND Nurse Practitioner Family | DX: R91.8 Other nonspecific abnormal finding of lung field (principal) ==

== ENCOUNTER → 2023-11-02 | Outpatient (CLI) | payer OTHER | LOC: M WHC 09:23 | PROVIDERS: ATTEND Nurse Practitioner Family | DX: Z12.31 Encounter for screening mammogram for malignant neoplasm of breast (principal); M81.0 Age-related osteoporosis without current pathological fracture ==

== ENCOUNTER → 2023-11-23 | Outpatient (CLI) | payer OTHER ==
[2023-11-23 13:19] LABS: BASO % 0.3 % (0.0-1.0); EOS # 0.1 10^3/uL (0.0-0.5); EOS % 2.4 % (0.0-3.0); HEMATOCRIT 43.8 % (36.0-47.0); HEMOGLOBIN 14.8 g/dl (12.0-15.5); LYMPH # 1.1 10^3/uL (1.5-5.0); LYMPH % 18.8 % (24.0-44.0); MEAN CORPUSCULAR HEMOGLOBIN 31.3 pg (27.0-33.0); MEAN CORPUSCULAR HGB CONC 33.8 g/dl (32.0-36.5); MEAN CORPUSCULAR VOLUME 92.6 fl (80.0-96.0); MONO # 0.4 10^3/uL (0.0-0.8); MONO % 7.7 % (2.0-8.0); NEUTROPHILS % 70.3 % (36.0-66.0); PLATELET COUNT, AUTOMATED 164 10^3/uL (150-450); RED BLOOD COUNT 4.73 10^6/uL (4.00-5.40); WHITE BLOOD COUNT 5.7 10^3/uL (4.0-10.0)
[2023-11-26 15:48] LABS: BERMUDA GRASS IGE < 0.10 kU/L (<0.10); BIRCH IGE < 0.10 kU/L (<0.10); COMMON RAGWEED SHORT IGE < 0.10 kU/L (<0.10); D001 IGE D PTERONYSSINUS < 0.10 kU/L (<0.10); D002-IGE D FARINAE < 0.10 kU/L (<0.10); E001-IGE CAT DANDER < 0.10 kU/L (<0.10); E005-IGE DOG DANDER < 0.10 kU/L (<0.10); ELM IGE < 0.10 kU/L (<0.10); I006 IGE COCKROACH 0.22 kU/L (<0.10); IMMUNOGLOBULIN E FOR ALLERGENS 21 kU/L (<OR=114); M002 IGE CLADOSPORIUM HERBARU < 0.10 kU/L (<0.10); M003 IGE ASPERGILLUS FUMIGATU < 0.10 kU/L (<0.10); M006 IGE ALTERNIA ALTERNATA < 0.10 kU/L (<0.10); M1-PENICILLIUM NOTATUM < 0.10 kU/L (<0.10); MOUSE URINE IGE < 0.10 kU/L (<0.10); MUGWORT IGE < 0.10 kU/L (<0.10); OAK IGE < 0.10 kU/L (<0.10); ROUGH PIGWEED IGE < 0.10 kU/L (<0.10); SHEEP SORREL IGE < 0.10 kU/L (<0.10); SYCAMORE IGE < 0.10 kU/L (<0.10); T001-IGE MAPLE BOX ELDER < 0.10 kU/L (<0.10); T006-IGE MOUNTAIN CEDAR < 0.10 kU/L (<0.10); T014 COTTONWOOD IGE < 0.10 kU/L (<0.10); TIMOTHY GRASS IGE < 0.10 kU/L (<0.10); WALNUT TREE IGE < 0.10 kU/L (<0.10); WHITE ASH IGE < 0.10 kU/L (<0.10); WHITE MULBERRY IGE < 0.10 kU/L (<0.10)
== END ==
LOC: M PLALAB 09:14
PROVIDERS: ATTEND Internal Medicine Critical Care Medicine
DX: G47.33 Obstructive sleep apnea (adult) (pediatric) (principal)

== ENCOUNTER → 2024-01-23 | Outpatient (CLI) | payer MEDICARE ==
[2024-01-23 10:40] LABS: BASO % 0.3 % (0.0-1.0); EOS # 0.1 10^3/uL (0.0-0.5); EOS % 1.8 % (0.0-3.0); HEMATOCRIT 42.6 % (36.0-47.0); HEMOGLOBIN 14.3 g/dl (12.0-15.5); LYMPH # 0.8 10^3/uL (1.5-5.0); LYMPH % 13.1 % (24.0-44.0); MEAN CORPUSCULAR HEMOGLOBIN 31.5 pg (27.0-33.0); MEAN CORPUSCULAR HGB CONC 33.6 g/dl (32.0-36.5); MEAN CORPUSCULAR VOLUME 93.8 fl (80.0-96.0); MONO # 0.3 10^3/uL (0.0-0.8); MONO % 5.4 % (2.0-8.0); NEUTROPHILS # 4.8 10^3/uL (1.5-8.5); NEUTROPHILS % 78.9 % (36.0-66.0); PLATELET COUNT, AUTOMATED 156 10^3/uL (150-450); RED BLOOD COUNT 4.54 10^6/uL (4.00-5.40); WHITE BLOOD COUNT 6.1 10^3/uL (4.0-10.0)
[2024-01-23 11:11] LABS: ALBUMIN 3.5 G/DL (3.2-5.2); ALKALINE PHOSPHATASE 94 U/L (35-104); ALT/SGPT 10 U/L (7.0-40); AST/SGOT < 8 U/L (<34); BILIRUBIN,TOTAL 0.5 MG/DL (0.3-1.2); BLOOD UREA NITROGEN 14 MG/DL (9-23); CALCIUM LEVEL 10.1 MG/DL (8.3-10.6); CARBON DIOXIDE LEVEL 31 MMOL/L (20-31); CHLORIDE LEVEL 106 MMOL/L (98-107); CHOLESTEROL LEVEL 192 MG/DL (<200); CHOLESTEROL RISK RATIO 3.82 (<5); CREATININE FOR GFR 0.66 MG/DL (0.55-1.30); GLOMERULAR FILTRATION RATE > 60.0 (>45); GLUCOSE, FASTING 98 MG/DL (74-106); HDL CHOLESTEROL 50.2 MG/DL (>40); LDL CHOLESTEROL 107.8 MG/DL (<100); NON-HDL-C 141.8 MG/DL; POTASSIUM SERUM 4.4 MMOL/L (3.5-5.1); SODIUM LEVEL 143 MMOL/L (136-145); TOTAL PROTEIN 6.5 G/DL (5.7-8.2); TRIGLYCERIDES LEVEL 170 MG/DL (<150)
[2024-01-23 11:12] LABS: THYROID STIMULATING HORMONE 4.598 uIU/ML (0.55-4.78); TOTAL 25(OH) VITAMIN D 39.6 NG/ML (20.0-100.0)
[2024-01-23 11:13] LABS: FREE T4 1.01 NG/DL (0.89-1.76)
== END ==
LOC: M PLALAB 08:16
PROVIDERS: ATTEND Nurse Practitioner Family
DX: E03.9 Hypothyroidism, unspecified (principal); E55.9 Vitamin D deficiency, unspecified; E78.2 Mixed hyperlipidemia

== ENCOUNTER → 2024-03-06 | Outpatient (CLI) | payer MEDICARE | LOC: M PLALAB 10:47 | PROVIDERS: ATTEND Internal Medicine Pulmonary Disease | DX: J44.9 Chronic obstructive pulmonary disease, unspecified (principal) ==

== ENCOUNTER → 2024-09-24 | Outpatient (CLI) | payer MEDICARE ==
[~2024-09-24] MED LIST changes: +ATOR1TAB21 PO; +CALC600C3 PO; +SYNT112T2 PO; +TREL1AER INH
[2024-09-24 10:42] LABS: FREE T4 1.28 NG/DL (0.89-1.76)
== END ==
LOC: M PLALAB 08:44
PROVIDERS: ATTEND Nurse Practitioner Family
DX: E03.9 Hypothyroidism, unspecified (principal)

== ENCOUNTER → 2024-11-14 | Outpatient (CLI) | payer MEDICARE | LOC: M RAD 14:28 | PROVIDERS: ATTEND Internal Medicine Critical Care Medicine | DX: F17.218 Nicotine dependence, cigarettes, with other nicotine-induced disorders (principal) ==

== ENCOUNTER → 2025-01-19 | Outpatient (REF) | payer MEDICARE | LOC: M SFHCDERM 17:22 | PROVIDERS: ATTEND Physician Assistant | DX: L82.1 Other seborrheic keratosis (principal) ==

== ENCOUNTER → 2025-01-20 | Outpatient (CLI) | payer MEDICARE ==
[2025-01-20 12:22] LABS: BASO # 0.0 10^3/uL (0.0-0.2); BASO % 0.4 % (0.0-1.0); EOS # 0.2 10^3/uL (0.0-0.5); EOS % 2.4 % (0.0-3.0); LYMPH # 1.2 10^3/uL (1.5-5.0); LYMPH % 18.2 % (24.0-44.0); MONO # 0.6 10^3/uL (0.0-0.8); MONO % 8.2 % (2.0-8.0); NEUTROPHILS # 4.7 10^3/uL (1.5-8.5); NEUTROPHILS % 69.9 % (36.0-66.0); PLATELET COUNT, AUTOMATED 160 10^3/uL (150-450)
[2025-01-20 12:59] LABS: FREE T4 1.15 NG/DL (0.89-1.76)
[2025-01-20 13:09] LABS: ALT/SGPT 27 U/L (7.0-40); AST/SGOT 20 U/L (<34); CALCIUM LEVEL 9.6 MG/DL (8.3-10.6); CARBON DIOXIDE LEVEL 30 MMOL/L (20-31); CHLORIDE LEVEL 100 MMOL/L (98-107); CHOLESTEROL LEVEL 180 MG/DL (<200); CHOLESTEROL RISK RATIO 3.22 (<5); CREATININE FOR GFR 0.68 MG/DL (0.55-1.30); GLOMERULAR FILTRATION RATE > 90.0 (>45); LDL CHOLESTEROL 78.8 MG/DL (<100); MAGNESIUM LEVEL 1.8 MG/DL (1.8-2.4); NON-HDL-C 124.2 MG/DL; POTASSIUM SERUM 4.4 MMOL/L (3.5-5.1); SODIUM LEVEL 139 MMOL/L (136-145); TRIGLYCERIDES LEVEL 227 MG/DL (<150)
== END ==
LOC: M PLALAB 08:40
PROVIDERS: ATTEND Nurse Practitioner Family
DX: I10 Essential (primary) hypertension (principal); E55.9 Vitamin D deficiency, unspecified; E03.9 Hypothyroidism, unspecified